=== PATIENT | female | born 1980 | race African-American/Black ===

== ENCOUNTER 2019-04-28 10:52 | Emergency (ER) | payer OTHER, SELFPAY ==
--- NOTE | ~2019-04-28 | XR_ITS ---
EXAMINATION: XR wrist LT min 3V DATE: 04/28/2019 11:49 INDICATION: Left wrist pain. TECHNIQUE: 4 views of left wrist were obtained. COMPARISON: None. FINDINGS: Bone alignment is normal. No fracture. Joint spaces are well maintained. IMPRESSION: 1. Normal left wrist. Reviewed, dictated and finalized at location A. CTOR EXTERNAL COMMUNICATIONS IMPRESSION: 1. Normal left wrist.
--- NOTE | ~2019-04-28 | XR_ITS ---
EXAMINATION: XR ankle RT 2V EXAM DATE: 04/28/2019 11:47 INDICATION: No known recent injury provided at this time. Pain of the right ankle. Sickle cell. TECHNIQUE: Right ankle frontal and lateral projections. Comparison is made to prior examination from 09/21/2009. FINDINGS: Patient had previous fibular plate, supporting tibia and fibular screws which have been re moved. Screw tracks again noted, with interval healing. 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 There are no acute fractures or dislocations identified. There is no subcutaneous gas. T he soft tissue is unremarkable. There are no radiopaque foreign bodies. There are no bony erosions identified. IMPRESSION: 1. XR ankle RT 2V exam without acute osseous findings. 2. Mild left ankle osteoarthritis. 3. Sequela from prior fracture, removed hardware. Reviewed, dictated and finalized at location B. OR PATROL AGENT
[2019-04-28 11:16] VITALS: BP 148/100; PULSE 88; RESP 16; TEMP 37.3; O2SAT 99
--- NOTE | 2019-04-28 11:22 | ED.GENADULT ---
HPI - General Adult General Chief complaint: Extremity Problem,Nontraumatic Stated complaint: arm and ankle pain Time Seen by Provider: 04/28/19 11:24 Source: patient and RN notes reviewed Mode of arrival: ambulatory Limitations: no limitations History of Present Illness HPI narrative: Yesterday on 04/27/2019, this patient started having pain in the left wrist and to a lesser extent the right wrist and in the small joints of the fingers without any visible swelling or warmth to touch or erythema. She has some mild discomfort at her left elbow as well. She has not had a trauma to these areas. She says she has a history of sickle cell trait and has had sickle cell crisis many years ago, but not recently. She is already scheduled a an appointment with her primary care physician for 3:00 today and has a hematology appointment in May 2019 to see a hvac r tech. She is had onset of right ankle discomfort without any swelling, no erythema, no warmth to touch that began this morning. She has had previous right ankle fracture which required screw placement. The screws have been removed. She has placed an Kian wrap on her ankle today since it is uncomfortable to walk. It hurts generally about the ankle, not any particular place. She has had no numbness or tingling sensation in her hands or feet. She has no toe pain and no pain in the left ankle or left toes. She has not had any knee or back pain. She has had not had any hip pain or any neck pain. She is otherwise felt well without any ear pain, no nasal drainage, no sore throat, no fever, no cough. She has had no nausea, no vomiting, no diarrhea. She has not been short of breath. She has had no palpitations. She has had no hematuria, no dysuria, no pyuria. She has had no rashes. Related Data Home Medications Medication Instructions Recorded Confirmed amlodipine 10 mg PO DAILY 04/28/19 04/28/19 hydrochlorothiazide 25 mg PO DAILY 04/28/19 04/28/19 Allergies Allergy/AdvReac Type Severity Reaction Status Date / Time No Known Allergies Allergy Verified 06/28/16 08:47 Review of Systems Review of Systems: Narrative: CONSTITUTIONAL: Denies fever, chills, or sweats. Noncontributory except as pertains to the past medical history and the history of present illness. EYES: Denies visual changes, redness, or discharge. ENT: Denies rhinorrhea, congestion, sore throat, or otalgia. CARDIOVASCULAR: Denies chest pain, palpitations, or edema. RESPIRATORY: Denies cough or dyspnea. GASTROINTESTINAL: Denies abdominal pain, nausea, vomiting, or diarrhea. GENITOURINARY: Denies dysuria or hematuria. SKIN: Denies rash or itching. MUSCULOSKELETAL: Denies back pain, joint pain, or myalgia. NEUROLOGIC: Denies headache, numbness, or weakness. PSYCHIATRIC: Denies anxiety or depression. PMFSH Comments At time of signature, I have reviewed and agree with nursing past medical, surgical, social, and family history.Please see nursing chart for further information. There is no relevant family history pertinent to the presenting complaint. Exam Narrative: Exam Narrative: GENERAL: Well-appearing, well-nourished, and in no acute distress. HEAD: Normocephalic, atraumatic. EYES: PERRLA and EOMI. EARS: TM's clear bilaterally and the canals are clear. NOSE: Nares clear, no rhinorrhea or epistaxis. THROAT:Mucous membranes moist.Oropharynx normal without erythema exudates. NECK: Supple. No adenopathy of the neck, supraclavicular, axillary, or inguinal areas. RESPIRATORY: No respiratory distress. Airway patent. Respirations non-labored. Clear to auscultation. There are no wheezes, no rales, no retractions, no use of accessory muscle respirations. Patient not cyanotic and not dyspneic. Pulse ox on room air is 99% current temperature is 99.2. HEART: Regular rate and rhythm. No murmur heard. Normal peripheral pulses. ABDOMEN: Soft, nontender, nondistended, normal active bowel sounds.No masses. No rebound or guarding, No
== END 2019-04-28 12:03 | disposition home or self-care (01) ==
PROVIDERS: Emergency Provider Family Medicine; PCP Registered Nurse
DX: M25.571 Pain in right ankle and joints of right foot (principal); M25.532 Pain in left wrist; M25.531 Pain in right wrist; I10 Essential (primary) hypertension; D57.1 Sickle-cell disease without crisis
CPT/HCPCS: 73110; 73600; 99214; G0463

== ENCOUNTER 2019-07-24 12:09 | Outpatient (CLI) | payer OTHER, SELFPAY ==
[2019-07-24 12:19] LABS: Mean Corpuscular HGB Conc 33.3 g/dl (32-36); Mean Corpuscular Hemoglobin 24.9 pg (26-34); Mean Corpuscular Volume 74.7 fl (80-100); Mean Platelet Volume 9.4 fl (7.4-10.4); Platelet Count Result 346 k/mm3 (150-375); Red Blood Count 4.82 M/mm3 (4.2-5.4); White Blood Count 10.7 K/mm3 (4.5-10.0)
[2019-07-24 13:54] LABS: Iron 69 ug/dL (37-170)
[2019-07-24 13:59] LABS: Blood Urea Nitrogen 6 mg/dL (7-17); Carbon Dioxide 29 mmol/L (22-30); Chloride 100 mmol/L (98-107); Estimated Glomerular Filt Rate > 60; Glucose 100 mg/dL (65-105); Potassium 3.3 mmol/L (3.4-5.0); Sodium 137 mmol/L (137-145)
[2019-07-24 14:03] LABS: Percent Iron Saturation 24 % (20-50)
== END 2019-07-24 12:10 | disposition home or self-care (01) ==
LOC: ANHLAB 12:09
PROVIDERS: PCP Registered Nurse; Visit Provider Internal Medicine Hematology & Oncology
DX: D50.0 Iron deficiency anemia secondary to blood loss (chronic) (principal)
CPT/HCPCS: 36415; 80048; 82728; 83540; 83550; 85027

== ENCOUNTER 2020-04-27 08:53 | Emergency (ER) | payer OTHER, SELFPAY ==
[2020-04-27] VITALS (18 sets, daily range): BP systolic 131–155; BP diastolic 70–101; PULSE 69–96; RESP 12–20; TEMP 36.9; O2SAT 90–100
--- NOTE | ~2020-04-27 | XR_ITS ---
EXAMINATION: XR chest 2V DATE: 04/27/2020 09:48 INDICATION: Left chest and arm pain TECHNIQUE: PA and lateral views of the chest were obtained. COMPARISON: Chest radiograph dated 04/12/2016 FINDINGS: The lungs remain clear with no focal airspace opacities, pulmonary edema, pleural effusion or pneumot horax. The cardiomediastinal silhouette is normal. Cholecystectomy clips in the right upper quadrant. Minimal thoracic spondylosis. IMPRESSION: 1. No acute cardiopulmonary disease. Reviewed, dictated and finalized at location B. R [employer]
--- NOTE | 2020-04-27 08:55 | ECG_ITS ---
Measurements Intervals Boley Rate: 76 P: 26 TN: 165 QRS: 38 QRSD: 93 T: 28 QT: 396 QTc: 448 Interpretive Statements SINUS RHYTHM DELAYED PRECORDIAL R/S TRANSITION BASELINE ARTIFACT- I, II, III, AVL, V1-V2 BORDERLINE ECG Electronically Signed On 04-27-2020 9:28:01 [employer] SAL[employer] by Vipul Mann D.O.
--- NOTE | 2020-04-27 09:19 | ED.CHESTPAIN ---
HPI - Chest Pain General Chief Complaint: Chest Pain Stated Complaint: lt jaw, lt chest and lt arm pain Time Seen by Provider: 04/27/20 09:13 Source: patient Mode of arrival: ambulatory Limitations: no limitations History of Present Illness HPI narrative: This is a 39-year-old female that presents the emergency department for squeezing chest pain x1 week. Reports the pain lasts for a couple of minutes and is resolved on its own. It is not exertional in nature. It happens intermittently throughout the day. The pain is associated with tingling in her left arm. Also reports the pain radiates into her neck at times. Reports she does not currently have any pain. Denies fever, cough, shortness of breath, lower extremity edema, or numbness. Related Data Home Medications Medication Instructions Recorded Confirmed amlodipine 10 mg PO DAILY 04/28/19 06/16/19 hydrochlorothiazide 25 mg PO DAILY 04/28/19 06/16/19 multivit with min-folic acid mg PO 06/16/19 [Adult One Daily Multivitamin] Allergies Allergy/AdvReac Type Severity Reaction Status Date / Time No Known Allergies Allergy Verified 06/28/16 08:47 Review of Systems Review of Systems: Narrative: CONSTITUTIONAL: Denies fever CARDIOVASCULAR: Reports chest pain. Denies palpitations, or edema. RESPIRATORY: Denies cough or dyspnea. SKIN: Denies rash MUSCULOSKELETAL: Reports joint pain, or myalgia. NEUROLOGIC: Denies numbness, or weakness. All systems reviewed & are unremarkable except as noted in HPI and below PMFSH Past Medical History Medical History (Updated 04/27/20 @ 12:52 by Kristina Abreu PA-C) History of hypertension Social History Social History Smoking status: Never smoker Gender identity (if verbalized by the patient): Female Spiritual care concerns: Yes (Uatsdin) Exam Narrative: Exam Narrative: GENERAL: Well-appearing, obese, and in no acute distress. HEAD: Normocephalic, atraumatic. EYES: EOMI. ENT: Mucous membranes moist. Oropharynx without tonsillar hypertrophy exudate or other lesions. NECK: Supple. No adenopathy or masses. No carotid bruits or JVD CHEST: Clear to auscultation. No respiratory distress. No wheezes rales or rhonchi HEART: Regular rate and rhythm. No murmur heard. Normal peripheral pulses. EXTREMITIES: Normal range of motion. No edema. SKIN: Warm, dry, no rash. NEURO: No focal deficits. Alert and oriented x3. PSYCH: Normal mood and affect Course Vital Signs Vital signs: Vital Signs Pulse Rate 76 04/27/20 09:18 Respiratory Rate 18 04/27/20 09:18 Pulse Oximetry 100 04/27/20 09:18 Temperature 98.4 F 04/27/20 09:27 Pulse Rate 91 04/27/20 12:00 Respiratory Rate 20 04/27/20 12:00 Blood Pressure 155/98 H 04/27/20 12:00 Pulse Oximetry 100 04/27/20 12:00 MDM - Chest Pain MDM Narrative Medical decision making narrative: Patient presents to the emergency department for intermittent chest pains over the last week. They are nonexertional in nature. Reports the pain lasts briefly and is alleviated without intervention. Blood pressure is mildly elevated in the ED, otherwise vitals are normal. CBC with mild leukocytosis to 10.9. Metabolic panel with mild hypokalemia with potassium of 2.9. Patient given dose of potassium in the ED. EKG is without concerning changes. Baseline and 3-hour troponin is negative. Chest x-ray is without acute findings. Heart score is 2. Reports no current chest pain while in the ED. She is stable and felt appropriate for further outpatient evaluation. She was instructed to follow-up with her primary care doctor. She was given warnings to return to the ER Lab Data Attestation: I reviewed the patient's lab results. Result diagrams: 04/27/20 09:14 04/27/20 09:14 Labs: Lab Results 04/27/20 04/27/20 04/27/20 Range/Units 09:14 09:14 09:14 WBC 10.9 H (4.5-10.0) K/mm3 RBC 4.51 (4.2-5.4) M/mm3 Hgb 12.0 (12.0-15
[2020-04-27 09:22] LABS: Basophils Absolute Auto 0.1 K/mm3 (0.0-0.1); Basophils Percent Auto 0.5 % (0.2-1.2); Eosinophils Absolute Auto 0.2 K/mm3 (0-0.3); Eosinophils Percent Auto 1.8 % (0-4.4); Hematocrit 35.7 % (37.0-47.0); Immature Granulocyte Absolute 0.03 K/mm3 (0.00-0.031); Immature Granulocyte Percent A 0.3 % (0-0.5); Lymphocytes Absolute Auto 2.29 K/mm3 (0.9-3.2); Lymphocytes Percent Auto 21.1 % (18.3-44.2); Mean Corpuscular HGB Conc 33.6 g/dl (32-36); Mean Corpuscular Hemoglobin 26.6 pg (26-34); Mean Corpuscular Volume 79.2 fl (80-100); Mean Platelet Volume 9.5 fl (7.4-10.4); Monocytes Absolute Auto 0.6 K/mm3 (0.1-0.6); Monocytes Percent Auto 5.3 % (2.6-8.5); Neutrophils Absolute Auto 7.7 K/mm3 (1.3-6.7); Platelet Count Result 343 k/mm3 (150-375); Red Blood Count 4.51 M/mm3 (4.2-5.4); Red Cell Distribution Width 12.9 % (11.5-14.5); White Blood Count 10.9 K/mm3 (4.5-10.0)
[2020-04-27] MEDS: ASPIRIN 81 MG CHEWABLE TABLET 324 MG PO (09:26)
[2020-04-27 09:36] LABS: Anion Gap 5 mmol/L (8-16); Blood Urea Nitrogen 11 mg/dL (7-17); Calcium 9.1 mg/dL (8.4-10.2); Carbon Dioxide 35 mmol/L (22-30); Chloride 98 mmol/L (98-107); Estimated CRCL calculation 98 ml/min; Estimated Glomerular Filt Rate > 60; Glucose 101 mg/dL (65-105); Potassium 2.9 mmol/L (3.4-5.0); Sodium 138 mmol/L (137-145)
[2020-04-27 09:48] LABS: Troponin I < 0.012 ng/mL (0.000-0.034)
[2020-04-27] MEDS: POTASSIUM CHLORIDE 20 MEQ TABLET 40 MEQ PO (10:07)
[2020-04-27 12:38] LABS: Troponin I < 0.012 ng/mL (0.000-0.034)
== END 2020-04-27 13:08 | disposition home or self-care (01) ==
PROVIDERS: Emergency Provider Emergency Medicine; PCP Registered Nurse
DX: R07.89 Other chest pain (principal); I10 Essential (primary) hypertension
CPT/HCPCS: 36415; 71046; 80048; 84484; 85025; 85610; 85730; 93005; 99284; A9270

== ENCOUNTER 2020-06-30 08:19 | Emergency (ER) | payer OTHER, SELFPAY ==
[2020-06-30 08:38] VITALS: BP 145/99; PULSE 80; RESP 16; TEMP 36.8; O2SAT 97
--- NOTE | 2020-06-30 08:54 | ED.URI ---
HPI - URI/Sore Throat General Chief Complaint: Upper Respiratory Infection Stated Complaint: sore throat Time Seen by Provider: 06/30/20 08:56 Source: patient and RN notes reviewed Mode of arrival: ambulatory Limitations: no limitations History of Present Illness HPI Narrative: 39-year-old female presents with concern for sore throat that started this morning. Reports her throat was raw and somewhat swollen, making her unable to swallow her blood pressure medication. She reports since then the sore throat has mildly improved without intervention. She reports postnasal drainage. She reports 3 episodes of diarrhea this morning. She denies fever, body aches, chills, sweats, cough, shortness of breath, nasal congestion, ear pain, vomiting, diarrhea. She denies any known sick contacts. Reports she was positive for Covid in January, was asymptomatic at that time. MD elicited complaint: sore throat Related Data Home Medications Medication Instructions Recorded Confirmed amlodipine [Norvasc] 10 mg PO DAILY 06/30/20 06/30/20 hydrochlorothiazide [HydroDiuril] 25 mg PO DAILY 06/30/20 06/30/20 Allergies Allergy/AdvReac Type Severity Reaction Status Date / Time No Known Allergies Allergy Verified 06/30/20 08:43 Review of Systems Review of Systems: Narrative: CONSTITUTIONAL: Denies malaise, chills, sweats, or fever. EYES: Denies visual changes, redness, or discharge. ENT: Reports rhinorrhea, sore throat. Denies congestion, sinus pain, otalgia CARDIOVASCULAR: Denies chest pain, palpitations, or edema. RESPIRATORY: Denies cough dyspnea. GASTROINTESTINAL: Denies abdominal pain, nausea, vomiting. Reports diarrhea SKIN: Denies rash or itching. MUSCULOSKELETAL: Denies myalgia. NEUROLOGIC: Denies headache. All systems reviewed & are unremarkable except as noted in HPI and below PMFSH Past Medical History Medical History (Updated 06/30/20 @ 09:05 by Sanam Rooney NP) History of hypertension Social History Social History Smoking status: Never smoker Gender identity (if verbalized by the patient): Female Spiritual care concerns: Yes (L[employer] Day) Comments At time of signature, agree with nursing past medical, surgical, social and family history. There is no relevant family history pertinent to the presenting complaint Exam Narrative: Exam Narrative: GENERAL: Well-appearing, well-nourished, and in no acute distress. HEAD: Normocephalic EYES: PERRLA, conjunctivae clear ENT: Nares clear, turbinates edematous and erythematous, clear discharge. Mucous membranes moist. TM pearly chaudhry with dull light reflex bilaterally; no tragal tenderness. Oropharynx erythematous without lesions. Tonsils enlarged and without exudate, no drooling, no hoarseness, no trismus, uvula midline. NECK: Supple. No lymphadenopathy CHEST: Clear to auscultation, breath sounds equal. No wheezing, rhonchi, rales, or stridor. No respiratory distress, speaks in full sentences. HEART: Regular rate and rhythm. No murmur heard. SKIN: Warm, dry, no rash. NEURO: Alert and oriented x3. PSYCH: Normal mood and affect Course Course Emergency Course: Patient is aware of diagnosis, understands and agrees to treatment plan. Anticipatory guidance given. Patient agrees to follow-up as directed and is aware of reasons to seek care at the emergency department. Portions of this record may have been created with voice recognition software Vital Signs Vital signs: Vital Signs Temperature 98.2 F 06/30/20 08:38 Pulse Rate 80 06/30/20 08:38 Respiratory Rate 16 06/30/20 08:38 Blood Pressure 145/99 H 06/30/20 08:38 Pulse Oximetry 97 06/30/20 08:38 Temperature 98.2 F 06/30/20 08:38 Pulse Rate 80 06/30/20 08:38 Respiratory Rate 16 06/30/20 08:38 Blood Pressure 145/99 H 06/30/20 08:38 Pulse Oximetry 97 06/30/20 08:38 Reviewed. MDM - URI/Sore Throat MDM Narrative Medical decision making narrative: Differential diagnosis considered: Cor
[2020-07-01 19:22] LABS: SARS-CoV-2 RNA PCR Negative
== END 2020-06-30 09:10 | disposition home or self-care (01) ==
PROVIDERS: Emergency Provider Nurse Practitioner; PCP Registered Nurse
DX: J06.9 Acute upper respiratory infection, unspecified (principal); Z20.822 Contact with and (suspected) exposure to COVID-19; I10 Essential (primary) hypertension
CPT/HCPCS: 87081; 87880; 99213; C9803; G0463; U0003; U0005

== ENCOUNTER 2020-08-22 15:43 | Emergency (ER) | payer OTHER, SELFPAY ==
[2020-08-22 15:52] VITALS: BP 140/107; PULSE 94; RESP 17; TEMP 37.1; O2SAT 99
--- NOTE | 2020-08-22 15:53 | ED.DENTAL ---
HPI - Dental/Oral General Chief complaint: Dental/Oral Stated complaint: Tooth Pain Source: patient and RN notes reviewed Mode of arrival: ambulatory Limitations: no limitations History of Present Illness HPI Narrative: 39-year-old female presents to the [facility] with complaints of dental pain, swelling to the right lower jaw. Has had dental issues for a while. Wanted to wait until summer so school was out. Does not currently have an appointment with a dental provider. No treatment prior to arrival. Last 2 days pain is gotten worse. Denies fevers. No trouble breathing. Teeth map: 1. decayed teeth Related Data Home Medications Medication Instructions Recorded Confirmed amlodipine [Norvasc] 10 mg PO DAILY 06/30/20 06/30/20 hydrochlorothiazide [HydroDiuril] 25 mg PO DAILY 06/30/20 06/30/20 Allergies Allergy/AdvReac Type Severity Reaction Status Date / Time No Known Allergies Allergy Verified 06/30/20 08:43 Review of Systems Constitutional: Constitutional: Reports no additional constitutional complaints, Denies chills and Denies fever(s) Eyes: Eyes: Reports no additional eye complaints ENT: Comments: Right lower dental pain and swelling Cardiovascular: Cardiovascular: Reports no additional cardiovascular complaints and Denies chest pain Respiratory: Respiratory: Reports no additional respiratory complaints, Denies cough, Denies dyspnea and Denies wheezing Gastrointestinal: Gastrointestinal: Reports no additional gastrointestinal complaints Musculoskeletal: Musculoskeletal: Reports no additional musculoskeletal complaints Integumentary/Breasts: Skin/Breast: Reports system reviewed and no additional complaints, except as docu Neurologic: Reports system reviewed and no additional complaints, except as documented Psychiatric: Psychiatric: Reports no additional psychiatric complaints [facility] Past Medical History Medical History (Updated 08/22/20 @ 15:59 by Sanam Varghese) History of hypertension Social History Social History Smoking status: Never smoker Gender identity (if verbalized by the patient): Female Spiritual care concerns: Yes (Pent[employer]ostal) Comments At the time of my signature, I reviewed and agree with the nursing past medical, surgical, social, and family history. There is no relevant family history pertinent to the patient complaint. Exam Const: General: healthy appearing, no acute distress and alert Nutritional Appearance: well nourished and obese morbidly obese Orientation/consciousness: patient oriented x3 Limitations: no limitations HENMT: Head: normal to inspection Ears: external ears normal and TM's normal bilaterally Teeth and gingiva: abnormal tooth and associated gingiva (Generalized poor dentition, posterior right lower molar decayed below gum) Throat: posterior oropharynx normal and uvula midline Eyes: Pupils: Equal, round and reactive pupils present Neck: Neck: normal visual inspection and no lymphadenopathy Chest: Chest palpation & inspection: normal inspection of the chest Resp: Effort & Inspection: normal respiratory effort and no use of accessory muscles Auscultation: clear to auscultation bilaterally, no crackles, no rales, no rhonchi and no wheezes Cardio: Rate: regular rate Rhythm: regular rhythm : General: Yes no CVA tenderness Skin: General skin exam: normal color Rashes: no rashes Neuro: General: patient oriented x3, moves all extremities, no meningeal signs and no focal motor deficits Speech: normal speech Gait exam (Neuro): Normal gait present Extrem: General: normal to inspection Psych: Appearance: grossly normal Mental Status: mental status grossly normal Affect: normal affect Attitude: cooperative Thought content: Yes Normal thought content present Course Vital Signs Vital signs: Vital Signs Temperature 98.8 F 08/22/20 15:52 Pulse Rate 94 08/22/20 15:52 Respiratory Rat
== END 2020-08-22 16:03 | disposition home or self-care (01) ==
PROVIDERS: Emergency Provider Nurse Practitioner; PCP Registered Nurse
DX: K04.7 Periapical abscess without sinus (principal); K02.9 Dental caries, unspecified; I10 Essential (primary) hypertension
CPT/HCPCS: 99213; G0463

== ENCOUNTER 2020-12-26 08:15 | Emergency (ER) | payer OTHER, SELFPAY ==
[2020-12-26 08:26] VITALS: BP 143/96; PULSE 77; RESP 18; TEMP 37; O2SAT 100
--- NOTE | 2020-12-26 08:40 | ED.URI ---
HPI - URI/Sore Throat General Chief Complaint: Upper Respiratory Infection Stated Complaint: Sore Throat Source: patient and RN notes reviewed Limitations: no limitations History of Present Illness HPI Narrative: The vaccinated, overweight patient, who was previously healthy school worker, presents with sore throat. Patient notes she has a couple day history of sore throat and scant nasal congestion; no fever, cough, loss of taste/smell, CP, vomiting/diarrhea, S OB. Symptoms are mild, worse with swallowing; [id number] testing is positive for strep Related Data Home Medications Medication Instructions Recorded Confirmed amlodipine [Norvasc] 10 mg PO DAILY 06/30/20 06/30/20 hydrochlorothiazide [HydroDiuril] 25 mg PO DAILY 06/30/20 06/30/20 Allergies Allergy/AdvReac Type Severity Reaction Status Date / Time No Known Allergies Allergy Verified 06/30/20 08:43 Review of Systems Review of Systems: General/Constitutional: No weight loss,fever Eyes: N0: Redness,discharge Ears/Nose/Throat: No: Epistaxis,ear discharge Respiratory: Denies: Hemoptysis Gastrointestinal: No Vomiting, Bleeding-rectal Skin: No Lumps, eruption Neurologic: No Focal Weakness,Sz Hematologic: Denies: Petechiae/Purpura Psychiatric: No: Suicida ideationl All Other Systems: Reviewed and Negative PMFSH Past Medical History Medical History (Updated 12/26/20 @ 08:41 by Wilfrido Dubon MD) History of hypertension Social History Social History Smoking status: Never smoker Gender identity (if verbalized by the patient): Female Spiritual care concerns: Yes (Yarsanism) Comments At time of signature, agree with nursing past medical, surgical, social and family history. There is no relevant family history pertinent to the presenting complaint Exam Narrative: General Appearance: Well appearing, Well nourished EYE: PERRLA, Conjunctiva clear Ears: Auditory canal normal, TM normal Nose: Rhinorrhea, Mucousal erythema Mouth/Throat: MM moist, Uvula midline, Pharyngeal erythema, uvular edema without exudate Neck: Supple, No adenopathy Respiratory: No respiratory distress, Breath sounds equal, Clear to auscultation Cardiovascular: RRR, No JVD Musculoskeletal: Non tender, Normal strength Skin: Warm, Dry Neurological: A&O x3, CN II-XII intact Psychiatric: Normal mood, Normal affect Course Vital Signs Vital signs: Vital Signs Temperature 98.6 F 12/26/20 08:26 Pulse Rate 77 12/26/20 08:26 Respiratory Rate 18 12/26/20 08:26 Blood Pressure 143/96 H 12/26/20 08:26 Pulse Oximetry 100 12/26/20 08:26 Temperature 98.6 F 12/26/20 08:26 Pulse Rate 77 12/26/20 08:26 Respiratory Rate 18 12/26/20 08:26 Blood Pressure 143/96 H 12/26/20 08:26 Pulse Oximetry 100 12/26/20 08:26 MDM - URI/Sore Throat Lab Data Labs: Strep Screen Positive Group A Strep *(Reference Range: Negative)* Discharge Plan Discharge Clinical Impression: Acute streptococcal pharyngitis Patient Disposition: Home, Self-Care Condition: Stable Instructions: Strep Throat (ED) Prescriptions: New amoxicillin 875 mg tablet 875 mg PO Q12H Qty: 20 RF: 0 lidocaine HCl [Lidocaine Viscous] 2 % solution 5 ml MUCOUS MEM QID PRN (Reason: pain) Qty: 100 RF: 0 Discontinued amoxicillin 875 mg tablet 875 mg PO Q12H Qty: 20 RF: 0 lidocaine HCl [Lidocaine Viscous] 2 % solution 5 ml MUCOUS MEM QID PRN (Reason: pain) Qty: 100 RF: 0 No Action amlodipine [Norvasc] 10 mg Tablet 10 mg PO DAILY RF: 0 hydrochlorothiazide [HydroDiuril] 25 mg Tablet 25 mg PO DAILY RF: 0 fluticasone propionate [Flonase Allergy Relief] 50 mcg/actuation spray,suspension 2 spray NASAL DAILY 14 Days Qty: 15.8 RF: 0 Coricidin HBP Cold and Flu 2-325 mg tablet 1 tablet PO Q4-6H PRN (Reason: cold symptoms) Qty:
== END 2020-12-26 08:50 | disposition home or self-care (01) ==
PROVIDERS: Emergency Provider Emergency Medicine; PCP Registered Nurse
DX: J02.0 Streptococcal pharyngitis (principal); Z20.822 Contact with and (suspected) exposure to COVID-19
CPT/HCPCS: 87426; 87880; 99213; C9803; G0463

== ENCOUNTER 2021-11-13 17:58 | Emergency (ER) | payer OTHER, SELFPAY ==
--- NOTE | ~2021-11-13 | XR_ITS ---
EXAMINATION: XR ankle RT min 3V DATE: 11/13/2021 19:01 INDICATION: Right ankle pain. TECHNIQUE: 4 views of right ankle were obtained. COMPARISON: Right ankle radiographs 04/28/2019 FINDINGS: Bone alignment is normal. No acute fracture. There are old fracture deformities of distal f ibula and medial malleolus with tracks from hardware that has been removed. There is an osteochondral lesion of lateral talar dome. There are enthesophytes at the posterior and plantar aspects of calcan eal tuberosity. There is ankle soft tissue swelling. IMPRESSION: 1. Osteochondral lesion of lateral talar dome. Reviewed, dictated and finalized at location A.
[2021-11-13 18:06] VITALS: BP 150/92; PULSE 76; RESP 16; TEMP 36.8; O2SAT 100
--- NOTE | 2021-11-13 18:35 | ED.GENADULT ---
HPI - General Adult General Chief complaint: Extremity Problem,Nontraumatic Stated complaint: Right Ankle Pain Time Seen by Provider: 11/13/21 18:35 Source: patient Mode of arrival: ambulatory Limitations: no limitations History of Present Illness HPI narrative: 41-year-old female with complaint of pain that started 2 to 3 days ago. Denies injury. Reports history of fracture to this ankle approximately 13 years ago. Reports pain when ambulatory. States that she is having mild swelling. States that she is limping when she is walking. Decreased range of motion due to pain. All systems reviewed and negative. Related Data Home Medications Medication Instructions Recorded Confirmed amlodipine 10 mg tablet (Norvasc) 10 mg PO DAILY 06/30/20 11/13/21 omeprazole 40 mg capsule,delayed 40 mg PO DAILY 09/18/21 11/13/21 release Allergies Allergy/AdvReac Type Severity Reaction Status Date / Time No Known Allergies Allergy Verified 11/13/21 18:12 Review of Systems Review of Systems: CONSTITUTIONAL: Denies fever, chills, or sweats. EYES: Denies visual changes, redness, or discharge. ENT: Denies rhinorrhea, congestion, sore throat, or otalgia. CARDIOVASCULAR: Denies chest pain, palpitations, or edema. RESPIRATORY: Denies cough or dyspnea. GASTROINTESTINAL: Denies abdominal pain, nausea, vomiting, or diarrhea. GENITOURINARY: Denies dysuria or hematuria. SKIN: Denies rash or itching. MUSCULOSKELETAL: Reports right ankle pain and swelling. NEUROLOGIC: Denies headache, numbness, or weakness. PSYCHIATRIC: Denies anxiety or depression. All other systems reviewed are negative, except as documented in HPI. PMFSH Past Medical History Medical History (Updated 11/13/21 @ 19:32 by Anila Vazquez NP) History of hypertension Social History Social History Smoking status: Never smoker Gender identity (if verbalized by the patient): Female Spiritual care concerns: Yes (Yazidism) Comments At time of signature, agree with nursing past medical, surgical, social and family history. There is no relevant family history pertinent to the presenting complaint. Exam Narrative: GENERAL: This is a well-nourished, well-developed patient, in no apparent distress. HEAD: normocephalic, atraumatic. EYES: PERRL. Sclera clear/white. Vision is grossly intact. EARS: External ears normal NOSE: External nose normal NECK: Neck supple, non-tender without lymphadenopathy, masses or thyromegaly. CARDIOVASCULAR: Regular rate and rhythm without murmurs, gallops, or rubs. RESPIRATORY: Clear to auscultation. Breath sounds equal bilaterally. No wheezes, rales, or rhonchi. SKIN: warm, Dry, intact with no suspicious lesions or rash, good texture and turgor. NEURO: awake, alert, and oriented to person, place and time. There were no obvious focal neurologic abnormalities. EXTREMITIES: There is mild swelling to right ankle with tenderness to anterior aspect. Decreased range of motion. Distal neurovascularly intact. BACK: Nontender without deformity. Course Course Level of Care: Express Care Visit Vital Signs Vital signs: Vital Signs Temperature 36.8 C 11/13/21 18:06 Pulse Rate 76 11/13/21 18:06 Respiratory Rate 16 11/13/21 18:06 Blood Pressure 150/92 H 11/13/21 18:06 Pulse Oximetry 100 11/13/21 18:06 Oxygen Delivery Room Air 11/13/21 18:06 Temperature 36.8 C 11/13/21 18:06 Pulse Rate 76 11/13/21 18:06 Respiratory Rate 16 11/13/21 18:06 Blood Pressure 150/92 H 11/13/21 18:06 Pulse Oximetry 100 11/13/21 18:06 Oxygen Delivery Room Air 11/13/21 18:06 Reviewed Medical Decision Making MDM Narrative Medical decision making narrative: Discussed x-ray results with patient. Will place an OCL splint due to pain, possible cartilage fracture. Refer to orthopedics for further evaluation. Patient is aware of diagnosis, understands and agrees to
== END 2021-11-13 20:00 | disposition home or self-care (01) ==
PROVIDERS: Emergency Provider Nurse Practitioner Family; PCP Registered Nurse
DX: M25.572 Pain in left ankle and joints of left foot (principal); M89.9 Disorder of bone, unspecified
CPT/HCPCS: 29515; 73610; 99213; G0463

== ENCOUNTER 2022-05-24 08:10 | Emergency (ER) | payer OTHER, SELFPAY ==
--- NOTE | 2022-05-24 08:11 | ED.URI ---
HPI - URI/Sore Throat General Chief Complaint: Upper Respiratory Infection Stated Complaint: Sinus Time Seen by Provider: 05/24/22 08:23 Source: patient, RN notes reviewed and old records reviewed Mode of arrival: ambulatory Limitations: no limitations History of Present Illness HPI Narrative: 41-year-old female presents to the [facility] with sinus congestion, body ache, ear pain and sore throat since Saturday, 2 days ago. Has taken Zicam and TheraFlu with no relief Patient has a history of high blood pressure, did not take her medication today. Onset (ago): day(s) (2) Related Data Home Medications Medication Instructions Recorded Confirmed amlodipine 10 mg tablet 10 mg PO DAILY 05/24/22 05/24/22 omeprazole 20 mg capsule,delayed 20 mg PO DAILY 05/24/22 05/24/22 release Allergies Allergy/AdvReac Type Severity Reaction Status Date / Time No Known Allergies Allergy Verified 05/24/22 08:22 Review of Systems Review of Systems: All systems reviewed & are unremarkable except as noted in HPI and below Constitutional: Constitutional: Reports as per HPI and Reports body ache(s) Eyes: Eyes: Reports no additional eye complaints ENT: Reports as per HPI, Reports nasal congestion and Reports sore throat Cardiovascular: Cardiovascular: Reports no additional cardiovascular complaints, Denies chest pain and Denies dyspnea Respiratory: Respiratory: Reports no additional respiratory complaints, Denies chest congestion, Denies cough and Denies dyspnea Gastrointestinal: Gastrointestinal: Reports no additional gastrointestinal complaints, Denies abdominal pain, Denies nausea and Denies vomiting Musculoskeletal: Musculoskeletal: Reports no additional musculoskeletal complaints Integumentary/Breasts: Skin/Breast: Reports system reviewed and no additional complaints, except as docu Neurologic: Reports system reviewed and no additional complaints, except as documented Psychiatric: Psychiatric: Reports no additional psychiatric complaints Allergic/Immunologic: Allergic/Immunologic: Reports no additional allergic/immunologic complaints [facility] Past Medical History Medical History History of hypertension Hypertension Surgical History Surgical History H/O gastric sleeve Family History Family History Father Alcoholism Diabetes mellitus Grandparent Cancer Heart disease Other Cancer Mother Hypertension Social History Social History Smoking status: Never smoker Alcohol intake: never Substance use: never Living arrangements: with family Additional occupation/education comments: [employer] Gender identity (if verbalized by the patient): Female Spiritual care concerns: Yes (Congregational) Comments At the time of my signature, I reviewed and agree with the nursing past medical, surgical, social, and family history. There is no relevant family history pertinent to the patient complaint. Exam Const: General: cooperative, healthy appearing, comfortable, no acute distress, well developed, alert and well nourished Nutritional Appearance: well nourished and obese Orientation/consciousness: patient oriented x3 Limitations: no limitations HENMT: Head: normal to inspection Ears: hearing grossly normal bilaterally and external ears normal Face/Nose/Sinus: Normal external nose present, Normal nares present, Normal nasal mucous membranes and turbinates present, Nasal discharge present clear bilateral and normal facial exam Face and sinus: normal facial exam Mouth: Yes Normal oral and palatal mucosa present, Yes lip normal and Yes moist mucous membranes Throat: posterior oropharynx normal and uvula midline Eyes: General: appearance normal, both eyes and all related structures Alignment a
[2022-05-24 08:22] VITALS: BP 153/99; PULSE 67; RESP 12; TEMP 36.9; O2SAT 100
== END 2022-05-24 09:00 | disposition home or self-care (01) ==
PROVIDERS: Emergency Provider Nurse Practitioner; PCP Registered Nurse
DX: J06.9 Acute upper respiratory infection, unspecified (principal); Z20.822 Contact with and (suspected) exposure to COVID-19
CPT/HCPCS: 87081; 87426; 87804; 87880; 99213; C9803; G0463

== ENCOUNTER 2022-10-18 16:21 | Emergency (ER) | payer OTHER, SELFPAY ==
--- NOTE | 2022-10-18 16:26 | ED.URI ---
HPI - URI/Sore Throat General Chief Complaint: Upper Respiratory Infection Stated Complaint: Covid + Time Seen by Provider: 10/18/22 16:35 Source: patient Mode of arrival: ambulatory Limitations: no limitations History of Present Illness HPI Narrative: Diane is a 41-year-old female patient presenting to the clinic today with complaints of headache, congestion, sore throat, body aches, feeling feverish, and chills all that just started last night. She is concerned that she may have COVID. She is tested 3 times at home for COVID had 1 test was positive, 1 testing confirmed, and 1 test that was negative. She denies any shortness of breath or chest pain. Denies any known exposure to anyone with COVID, flu, or strep. MD elicited complaint: sore throat and nasal congestion Related Data Home Medications Medication Instructions Recorded Confirmed amlodipine 10 mg tablet 10 mg PO DAILY 05/24/22 05/24/22 omeprazole 20 mg capsule,delayed 20 mg PO DAILY 05/24/22 05/24/22 release ergocalciferol (vitamin D2) 1,250 10/18/22 mcg (50,000 unit) capsule Allergies Allergy/AdvReac Type Severity Reaction Status Date / Time No Known Allergies Allergy Verified 10/18/22 16:35 Review of Systems Review of Systems: Pertinent positives per HPI. Patient denies any rash,visual changes, dizziness,shortness of breath, chest pain, palpitations, nausea, vomiting, diarrhea, constipation, abdominal pain, or any urinary issues. [facility] Past Medical History Medical History History of hypertension Hypertension Surgical History Surgical History H/O gastric sleeve Family History Family History Father Alcoholism Diabetes mellitus Grandparent Cancer Heart disease Other Cancer Mother Hypertension Social History Social History Smoking status: Never smoker Alcohol intake: never Substance use: never Living arrangements: with family Additional occupation/education comments: [employer] Gender identity (if verbalized by the patient): Female Spiritual care concerns: Yes (Spiritism) Comments At the time of my signature, I reviewed and agree with the nursing past medical, surgical, social, and family history. There is no relevant family history pertinent to the patient complaint. Exam Narrative: General: Well-developed, well nourished, in no apparent distress Head: Normocephalic, atraumatic Eyes: Pupils equally round and reactive to light bilaterally, EOM intact, sclera and conjunctive clear, no discharge, lids normal Ears: TMs intact and clear, ear canals clear, no drainage, grossly hearing normal. Nose: Nares patent, clear nasal discharge, no inflammation, no sinus tenderness. Mouth: Oral pharynx without lesions or masses, good dentition, MMM. Neck: Supple, trachea midline, no enlargement of anterior or posterior cervical nodes, no thyroid masses or goiter palpable. Cardio: Regular rate and rhythm, s1 and s2 normal, no murmur appreciated. Resp: Clear to auscultation bilaterally, no rhonchi, rales, wheezing or rubs Course Course Emergency Course: Portions of this record may have been created with voice recognition software. Level of Care: Express Care Visit Vital Signs Vital signs: Vital signs reviewed MDM - URI/Sore Throat MDM Narrative Medical decision making narrative: At the time of visit patient is resting comfortably on the exam table. COVID, strep, and influenza testing was performed and was negative. I suspect patient has viral syndrome, URI, pharyngitis. Supportive measures were discussed with the patient she voiced understanding discharge instructions and agrees to treatment plan. Differential Diagnosis Differential diagnosis: Likely
[2022-10-18 16:39] VITALS: BP 154/95; PULSE 81; RESP 16; TEMP 37.3; O2SAT 100
== END 2022-10-18 17:22 | disposition home or self-care (01) ==
PROVIDERS: Emergency Provider Nurse Practitioner Family; PCP Registered Nurse
DX: J06.9 Acute upper respiratory infection, unspecified (principal); J02.9 Acute pharyngitis, unspecified; B34.9 Viral infection, unspecified; Z20.822 Contact with and (suspected) exposure to COVID-19; I10 Essential (primary) hypertension
CPT/HCPCS: 87081; 87426; 87804; 87880; 99213; C9803; G0463

== ENCOUNTER 2023-04-03 13:06 | Outpatient (CLI) | payer OTHER, SELFPAY ==
[2023-04-03 13:17] LABS: Basophils Absolute Auto 0.1 K/mm3 (0.0-0.1); Basophils Percent Auto 0.9 % (0.2-1.2); Eosinophils Absolute Auto 0.3 K/mm3 (0-0.3); Eosinophils Percent Auto 4.9 % (0-4.4); Hematocrit 26.4 % (37.0-47.0); Immature Granulocyte Absolute 0.02 K/mm3 (0.00-0.031); Immature Granulocyte Percent A 0.3 % (0-0.5); Lymphocytes Absolute Auto 1.85 K/mm3 (0.9-3.2); Mean Corpuscular HGB Conc 30.3 g/dl (32-36); Mean Corpuscular Hemoglobin 19.3 pg (26-34); Mean Corpuscular Volume 63.8 fl (80-100); Mean Platelet Volume 8.1 fl (7.4-10.4); Monocytes Absolute Auto 0.6 K/mm3 (0.1-0.6); Monocytes Percent Auto 9.7 % (2.6-8.5); Neutrophils Absolute Auto 3.5 K/mm3 (1.3-6.7); Neutrophils Percent Auto 55.2 % (45.5-73.1); Platelet Count Result 228 k/mm3 (150-375); Red Blood Count 4.14 M/mm3 (4.2-5.4); Red Cell Distribution Width 29.9 % (11.5-14.5); White Blood Count 6.4 K/mm3 (4.5-10.0)
[2023-04-03 13:22] LABS: Anisocytosis 1+ (NORMAL); Microcytosis 1+ (NORMAL); Platelet Estimate Adequate (Adequate); Schistocytes None Seen (NORMAL); Target Cells 1+ (NORMAL)
[2023-04-03 13:23] LABS: Poikilocytosis 1+ (NORMAL)
[2023-04-03 15:21] LABS: Iron 28 ug/dL (37-170)
[2023-04-03 15:37] LABS: Percent Iron Saturation 7 % (20-50)
== END 2023-04-03 13:07 | disposition home or self-care (01) ==
LOC: ANHLAB 13:07
PROVIDERS: PCP Registered Nurse; Visit Provider Internal Medicine Hematology & Oncology
DX: D64.9 Anemia, unspecified (principal)
CPT/HCPCS: 36415; 82607; 82728; 82746; 83540; 83550; 85025

== ENCOUNTER 2023-05-08 18:40 | Emergency (ER) | payer OTHER, SELFPAY ==
[2023-05-08 18:50] VITALS: BP 147/100; PULSE 96; RESP 18; TEMP 37; O2SAT 100
--- NOTE | 2023-05-08 19:01 | ED.URI ---
HPI - URI/Sore Throat General Chief Complaint: Upper Respiratory Infection Stated Complaint: COVID + Time Seen by Provider: 05/08/23 19:01 Source: patient Mode of arrival: ambulatory Limitations: no limitations History of Present Illness HPI Narrative: 42-year-old female presents with complaint of sinus congestion, sore throat starting yesterday. Patient reports she had 2 positive home COVID test today. Patient needs note to be off work. Reports mild cough, no shortness of breath. All systems reviewed and negative except as noted above. Related Data Home Medications Medication Instructions Recorded Confirmed amlodipine 10 mg tablet 10 mg PO DAILY 05/24/22 05/08/23 omeprazole 20 mg capsule,delayed 20 mg PO DAILY 05/24/22 05/08/23 release ergocalciferol (vitamin D2) 1,250 1,250 mcg PO DAILY 10/18/22 05/08/23 mcg (50,000 unit) capsule Allergies Allergy/AdvReac Type Severity Reaction Status Date / Time No Known Allergies Allergy Verified 05/08/23 18:55 Review of Systems Review of Systems: CONSTITUTIONAL: Denies fever, chills, or sweats. EYES: Denies visual changes, redness, or discharge. ENT: Reports rhinorrhea, congestion, sore throat. Denies otalgia. CARDIOVASCULAR: Denies chest pain, palpitations, or edema. RESPIRATORY: reports cough. Denies dyspnea. GASTROINTESTINAL: Denies abdominal pain, nausea, vomiting, or diarrhea. GENITOURINARY: Denies dysuria or hematuria. SKIN: Denies rash or itching. MUSCULOSKELETAL: Denies back pain, joint pain, or myalgia. NEUROLOGIC: Denies headache, numbness, or weakness. PSYCHIATRIC: Denies anxiety or depression. All other systems reviewed are negative, except as documented in HPI. [facility] Past Medical History Medical History History of hypertension Hypertension Surgical History Surgical History H/O gastric sleeve Family History Family History Father Alcoholism Diabetes mellitus Grandparent Cancer Heart disease Other Cancer Mother Hypertension Social History Social History (Reviewed 10/18/22 @ 17:18 by ANN MARIE Roque Smoking status: Never smoker Alcohol intake: never Substance use: never Living arrangements: with family Additional occupation/education comments: [employer] Gender identity (if verbalized by the patient): Female Spiritual care concerns: Yes (Jewish) Comments At time of signature, agree with nursing past medical, surgical, social and family history. There is no relevant family history pertinent to the presenting complaint. Exam Narrative: GENERAL: This is a well-nourished, well-developed patient, in no apparent distress. HEAD: normocephalic, atraumatic. EYES: PERRL. Sclera clear/white. Vision is grossly intact. EARS: External ears normal, auditory canals clear and without drainage, TMs normal without perforation. Hearing grossly intact. NOSE: External nose normal with clear nasal drainage with mild congestion. THROAT: Mucous membranes moist, posterior pharynx clear. NECK: Neck supple, non-tender without lymphadenopathy, masses or thyromegaly. CARDIOVASCULAR: Regular rate and rhythm without murmurs, gallops, or rubs. RESPIRATORY: Clear to auscultation. Breath sounds equal bilaterally. No wheezes, rales, or rhonchi. SKIN: warm, Dry, intact with no suspicious lesions or rash, good texture and turgor. NEURO: awake, alert, and oriented to person, place and time. There were no obvious focal neurologic abnormalities. EXTREMITIES: No joint tenderness, effusion, or edema noted. Course Course Level of Care: Express Care Visit Vital Signs Vital signs: Vital Signs Temperature 37.0 C 05/08/23 18:50 Pulse Rate 96 05/08/23 18:50 Respiratory Rate 18 05/08/23 18:50 Blood Pressure 147/100 H
[2023-05-09 19:44] LABS: SARS-CoV-2 RNA PCR Positive (Negative)
== END 2023-05-08 19:30 | disposition home or self-care (01) ==
PROVIDERS: Emergency Provider Nurse Practitioner Family; PCP Registered Nurse
DX: U07.1 COVID-19 (principal); I10 Essential (primary) hypertension; Z98.84 Bariatric surgery status
CPT/HCPCS: 87081; 87426; 87635; 87804; 87880; 99213; G0463

== ENCOUNTER 2023-08-06 13:37 | Observation (INO) | payer OTHER, SELFPAY ==
--- NOTE | ~2023-08-06 | CT_ITS ---
EXAMINATION: CT thoracic spine wo con DATE: 08/06/2023 17:02 INDICATION: Back pain post fall TECHNIQUE: Computed tomography (CT) of the thoracic spine was performed without intravenous contrast. Automated exposure control and iterative reconstruction technique were employed. The dose-length pro duct was 605.33 mGy-cm. COMPARISON: Two-view chest radiograph dated 04/27/2020 FINDINGS: Alignment is normal. There are relatively recent-appearing superior endplate compression fractures wi th lucent likely fracture lines along the superior endplates and mild underlying some endplate sclero sis. This includes T4, T5 and T6 and T8, each with <20% central vertebral body height loss. There is mild central ballooning of the disks adjacent to the compression fractures. Remaining disc heights ar e normal. No significant central canal or neural foraminal stenosis. There are tree-in-bud opacities in the left lower lobe and visualized dependent portion of the lingula which given the history of sei zure is concerning for aspiration. Small sliding-type hiatal hernia with suture line along the visual ized proximal most stomach suggesting possible sleeve gastrectomy. Cholecystectomy clips the gallblad siobhan fossa. IMPRESSION: 1. Relatively recent-appearing mild superior endplate compression fractures at T4, T5, T6 and T8. 2. Tree-in-bud opacities in the left lower lobe and lingula suspicious for aspiration. Reviewed, dictated and finalized at location A. IMPRESSION: 1. Relatively recent-appearing mild superior endplate compression fractures at T4, T5, T6 and T8. 2. Tree-in-bud opacities in the left lower lobe and lingula suspicious for aspi ration.
--- NOTE | ~2023-08-06 | CT_ITS ---
EXAMINATION: CT cervical spine wo con DATE: 08/06/2023 17:01 INDICATION: Fall post seizure TECHNIQUE: Computed tomography (CT) of the cervical spine was performed without intravenous contrast. Automated exposure control and iterative reconstruction technique were employed. The dose-length pro duct was 605.33 mGy-cm. COMPARISON: None FINDINGS: 5 degrees cervicothoracic levocurvature. Sagittal alignment is normal. Vertebral body and disc height s are normal. No fracture. No significant facet or uncovertebral osteoarthritis. No central canal or neural foraminal stenosis. Cervical soft tissues are unremarkable.. Periodontal and dental disease wi th several dental caries. Visualized apices of lungs are clear. IMPRESSION: 1. No acute osseous abnormality Reviewed, dictated and finalized at location A.
--- NOTE | ~2023-08-06 | CT_ITS ---
EXAMINATION: CT brain wo con DATE: 08/06/2023 17:01 INDICATION: Fall post seizure TECHNIQUE: Computed tomography (CT) of the head was performed without intravenous contrast. Sagittal and coronal reconstructions were performed. The mA was adjusted according to patient size. Iterative reconstruction technique was employed. The dose-length product was 605.33 mGy-cm. COMPARISON: None FINDINGS: No fracture. No acute intracranial hemorrhage, acute infarction or abnormal extra axial fluid collect ion. Ventricles are normal and symmetric. No mass/mass effect. Tiny right mastoid effusion. The orbit s and paranasal sinuses are normal. IMPRESSION: 1. Normal brain. No fracture or acute intracranial process. Reviewed, dictated and finalized at location A.
[2023-08-06 13:37] VITALS: BP 150/109; PULSE 87; RESP 18; TEMP 36.1; O2SAT 100
[2023-08-06 15:15] VITALS: O2SAT 98
--- NOTE | 2023-08-06 15:55 | ED.SEIZURE ---
HPI - Seizure General Chief Complaint: Seizure Stated Complaint: seizure Time Seen by Provider: 08/06/23 15:19 History of Present Illness HPI Narrative: Patient is a 42-year-old female with history of iron deficiency anemia requiring recurrent transfusions here after seizure-like activity. She notes that she was sitting at work in a chair when she started feeling flushed and then woke up in an ambulance. Mom states that per bystanders they noted that she called out for help, fell to the ground out of her chair and had approximately 2 minutes of generalized tonic clonic movements. She was confused afterwards and now is back to her normal self. She is currently complaining of a headache and mid back pain after the fall. She also is experiencing some tongue pain and is worried she may have bit her tongue. Patient notes one similar episode about 3 months ago. She notes she was at [facility] waiting for blood transfusion and had some seizure like movements, she notes she has seen a neurologist through the [facility] system, is not on antiepileptics. She denies blood thinner use. No current chest pain or shortness of breath. Related Data Home Medications Medication Instructions Recorded Confirmed amlodipine 10 mg tablet 10 mg PO DAILY 05/24/22 07/19/23 omeprazole 20 mg capsule,delayed 20 mg PO DAILY 05/24/22 07/19/23 release ergocalciferol (vitamin D2) 1,250 1,250 mcg PO DAILY 10/18/22 07/19/23 mcg (50,000 unit) capsule Allergies Allergy/AdvReac Type Severity Reaction Status Date / Time No Known Allergies Allergy Verified 07/19/23 14:57 Review of Systems Review of Systems: All systems reviewed & are unremarkable except as noted in HPI and below PMFSH Past Medical History Medical History History of hypertension Hypertension Surgical History Surgical History H/O gastric sleeve Family History Family History Father Alcoholism Diabetes mellitus Grandparent Cancer Heart disease Other Cancer Mother Hypertension Social History Social History (Reviewed 10/18/22 @ 17:18 by ANN MARIE Roque Smoking status: Never smoker Alcohol intake: never Substance use: never Living arrangements: with family Additional occupation/education comments: [employer] Gender identity (if verbalized by the patient): Female Spiritual care concerns: Yes (Nondenominational) Exam Narrative: GENERAL: Well-appearing, well-nourished, and in no acute distress. HEAD: Normocephalic, atraumatic. EYES: PERRLA and EOMI. ENT: Nares clear. Mucous membranes moist. No obvious tongue biting or laceration. NECK: Supple. No midline cervical tenderness. CHEST: Clear to auscultation. No respiratory distress. No chest wall tenderness HEART: Regular rate and rhythm. Normal peripheral pulses. ABDOMEN: Soft, nontender, nondistended. EXTREMITIES: Normal range of motion. No edema. Bilateral upper and lower extremities atraumatic. She does have midline midthoracic tenderness with no step-offs appreciated. No lumbar tenderness. SKIN: Warm, dry, no rash. NEURO: No focal deficits. Alert and oriented x3. PSYCH: Normal mood and affect. Course Course Emergency Course: Chart review performed. Patient here after reported seizure. Triage vitals show HTN, otherwise normal. Patient seen evaluated, nontoxic appearing, alert, oriented, does not appear to be postictal at this time. Concern for possible seizure-like activity. She did fall to the floor, will do CT head, cervical spine, thoracic spine. Basic lab workup and EKG have been ordered. Lab work and imaging reviewed. Hgb 11.7, will not require transfusion today. Electrolytes within normal limits. Troponin normal. CT brain negative, CT cervical spine negative. CT thoracic sp
--- NOTE | 2023-08-06 15:58 | ECG_ITS ---
SEE SCANNED COPY FOR CONFIRMED REPORT MTDD
[2023-08-06] MEDS: ONDANSETRON INJ 4 MG/2 ML VIAL IV PUSH (16:14)
[2023-08-06] MEDS: MORPHINE SULFATE (*CRX) 4 MG/ML INJ IV PUSH (16:14)
[2023-08-06 16:53] LABS: Basophils Percent Auto 0.3 % (0.2-1.2); Eosinophils Absolute Auto 0.1 K/mm3 (0-0.3); Eosinophils Percent Auto 1.2 % (0-4.4); Hematocrit 36.5 % (37.0-47.0); Hemoglobin 11.7 g/dL (12.0-15.0); Immature Granulocyte Absolute 0.03 K/mm3 (0.00-0.031); Immature Granulocyte Percent A 0.3 % (0-0.5); Immature Platelet Fraction Pct 2.5 % (0.9-11.2); Lymphocytes Absolute Auto 1.34 K/mm3 (0.9-3.2); Lymphocytes Percent Auto 13.7 % (18.3-44.2); Mean Corpuscular HGB Conc 32.1 g/dl (32-36); Mean Corpuscular Hemoglobin 23.1 pg (26-34); Mean Corpuscular Volume 72.1 fl (80-100); Mean Platelet Volume 9.5 fl (7.4-10.4); Monocytes Absolute Auto 0.4 K/mm3 (0.1-0.6); Monocytes Percent Auto 4.5 % (2.6-8.5); Neutrophils Absolute Auto 7.9 K/mm3 (1.3-6.7); Platelet Count Result 245 k/mm3 (150-375); Red Blood Count 5.06 M/mm3 (4.2-5.4); White Blood Count 9.8 K/mm3 (4.5-10.0)
[2023-08-06 17:06] LABS: Alanine Aminotransferase 9 U/L (6-35); Albumin Level 4.7 g/dL (3.5-5.1); Alkaline Phosphatase 76 U/L (38-126); Anion Gap 6 mmol/L (4-12); Aspartate Amino Transferase 24 U/L (14-36); Blood Urea Nitrogen 11 mg/dL (7-17); Calcium 9.5 mg/dL (8.4-10.2); Carbon Dioxide 26 mmol/L (22-30); Chloride 105 mmol/L (98-107); Estimated CRCL calculation 94 ml/min; Estimated Glomerular Filt Rate > 60; Glucose 84 mg/dL (65-110); Magnesium 2.1 mg/dL (1.6-2.3); Potassium 3.5 mmol/L (3.4-5.0); Sodium 137 mmol/L (137-145)
[2023-08-06 17:17] LABS: Anisocytosis 2+; Microcytosis 1+ (NORMAL); Ovalocytes 1+; Platelet Estimate Adequate (Adequate); Target Cells 1+; Troponin I < 0.012 ng/mL (0.000-0.034)
[2023-08-06 17:18] LABS: Schistocytes None Seen; Tear Drop Cells 1+
[2023-08-06] MEDS: diazePAM (*CRX) 5 MG TABLET 10 MG PO (17:25)
[2023-08-06 20:13] VITALS: BP 142/84; PULSE 65; RESP 18; O2SAT 100
[2023-08-06] MEDS: HYDROmorphone HCL INJ (*CRX) 1 MG/ML SYR IV PUSH (22:51)
[2023-08-06 23:00] VITALS: BP 167/98; PULSE 69; RESP 18; TEMP 36.5; O2SAT 100
[2023-08-06 23:53] VITALS: BP 146/92
[2023-08-07] VITALS (10 sets, daily range): BP systolic 121–136; BP diastolic 77–95; PULSE 52–81; RESP 16–18; TEMP 36.5–36.6; O2SAT 98–100
[2023-08-07] MEDS: HYDROmorphone HCL INJ (*CRX) 1 MG/ML SYR IV PUSH (08:42)
[2023-08-07] MEDS: ENOXAPARIN 40 MG/0.4 ML SYRINGE SUB-Q (09:50)
[2023-08-07] MEDS: levETIRAcetam 500 MG TABLET PO ×2 (09:50→21:11)
[2023-08-07] MEDS: amLODIPine BESYLATE 5 MG TABLET 10 MG PO (09:50)
[2023-08-07] MEDS: PANTOPRAZOLE 40 MG TABLET PO (09:50)
--- NOTE | 2023-08-07 10:31 | PM.IMHP ---
H&P: HPI History of Present Illness Date/Time: 08/07/23 10:31 Chief Complaint: Seizure Narrative: This is 42-year-old female with a significant past medical history of iron deficiency anemia, sickle cells trait, hypertension presented to the hospital after seizure-like activity. Most of information obtained from the chart as patient had altered mental status at that time. Patient was reported per bystanders to have approximately a 2 minute generalized tonic clonic seizure at work and sustained a fall to the ground out of her chair. Patient was somewhat confused afterwards however she is now back to her normal self. Patient did state in the ED that she had an episode about 3 months ago when she was at [facility] waiting for blood transfusion and she had some seizure-like activity at that time. She was seeing a neurologist at [facility] but was not on any antiepileptics. She states that they thought that this might of been due more to her anemia. She did say that her mother has history of seizures and is on Lamictal. Patient denies any fever, chills, nausea, abdominal pain, chest pain, shortness a breath. Patient endorses fatigue and back pain. Workup in the hospital included head CT which was negative for any acute intracranial process, no fracture seen. Cervical spine CT was negative. Thoracic spine CT showed recent appearing mild superior endplate compression fractures at T4, T5, T6, and T8, tree in bed opacities in the left lower lobe and lingula suspicious for aspiration. Initial labs revealed hemoglobin of 11.7, troponin 0.012, otherwise unremarkable. EKG showed normal sinus rhythm with a rate of 65, QTC 419. Patient was given a dose of morphine, Valium, and Zofran while in the ED. neurosurgery and Neurology were both consulted. Patient was started on Keppra for recent seizure activity and dilaudid ordered for pain control. Review of Systems Review of Systems: All systems reviewed & are unremarkable except as noted in HPI and below Constitutional: Constitutional: Reports as per HPI and Reports no additional constitutional complaints Eyes: Eyes: Reports as per HPI and Reports no additional eye complaints ENT: Reports system reviewed and no additional complaints, except as documented and Reports as per HPI Cardiovascular: Cardiovascular: Reports as per HPI and Reports no additional cardiovascular complaints Respiratory: Respiratory: Reports as per HPI and Reports no additional respiratory complaints Gastrointestinal: Gastrointestinal: Reports as per HPI and Reports no additional gastrointestinal complaints Genitourinary: Genitourinary: Reports no additional female genitourinary complaints and Reports as per HPI Musculoskeletal: Musculoskeletal: Reports no additional musculoskeletal complaints and Reports as per HPI Integumentary/Breasts: Skin/Breast: Reports system reviewed and no additional complaints, except as docu and Reports as per HPI Neurologic: Reports system reviewed and no additional complaints, except as documented and Reports as per HPI Psychiatric: Psychiatric: Reports no additional psychiatric complaints and Reports as per HPI [facility] Past Medical History Medical History Hypertension Seizure Sickle cell trait Surgical History Surgical History H/O gastric sleeve Family History Family History Father Alcoholism Diabetes mellitus Grandparent Cancer Heart disease Other Cancer Mother Hypertension Seizures Social History Social History Smoking status: Never smoker Second hand tobacco smoke exposure: No Alcohol intake: current Drinks per week: 4 Substance use: current Substance use type: marijuana Do You Feel Safe in your Home?: Yes Lack of Transpo
[2023-08-07] MEDS: ONDANSETRON INJ 4 MG/2 ML VIAL IV PUSH (10:33)
--- NOTE | 2023-08-07 11:11 | WPDNEURCNPN ---
Assessment and Plan Assessment and plan (1) Seizure-like activity: Code(s): R56.9 - Unspecified convulsions Status: Acute Plan 1. Neurological examination at this stage is nonfocal, and initial CT scan of the head was negative but will obtain the MRI of the brain to rule out the possibility of subtle lesions because the history of recurrent episodes of seizure. Additionally she will need an EEG and in the meantime she will continue on Keppra 500mg q.12 hours with seizure precautions while in the hospital and also with instruction not to drive until she is seizure-free the next 6 months. Consult date: 08/07/23 HPI: Diane Anglin is a 42 year old female Admitted to the hospital through the emergency room for the complaint of seizure-like activity. Reportedly she was sitting at work in a chair when she started feeling flushed and then woke up in an ambulance. Bystanders noted she called out for help fell to the ground out of her chair and had [id number] of generalized tonic-clonic movements. She was noted to be confused afterwards and subsequently complaining of headaches and mid lower back pain additionally she complained of 10 pain patient has had the similar episode about 3 months ago when she was waiting at [facility] for the blood transfusion and she has seen the neurologist through [facility] though at present she is not on any antiepileptic. Her medications included amlodipine 10mg daily, omeprazole 20mg daily, and vitamin D supplements, she is not allergic to any medications, she is never a smoker, never alcohol intake and her initial examination in the emergency room was nonfocal . Her initial blood pressure was 150/109, CBC was normal with hemoglobin 11.7 BMP was normal and master scan was also normal. Initial CT scan of the head was negative for the bleed, for fracture, cervical spine CT scan was negative as well thoracic spine CT scan documented endplate compression fracture at T4-T5 T6 and T8 and x-ray chest with questionable left lower lobe lingular aspiration pneumonia, patient was started on Keppra in the emergency room Review of Systems Review of Systems: All systems reviewed & are unremarkable except as noted in HPI and below PMFSH Past Medical History Medical History Hypertension Seizure Surgical History Surgical History H/O gastric sleeve Family History Family History Father Alcoholism Diabetes mellitus Grandparent Cancer Heart disease Other Cancer Mother Hypertension Social History Social History Smoking status: Never smoker Second hand tobacco smoke exposure: No Alcohol intake: current Drinks per week: 4 Substance use: current Substance use type: marijuana Do You Feel Safe in your Home?: Yes Lack of Transportation: No Lack of Food: Never True Current Housing: I Have Housing Concerned About Future Housing: No Difficulty Paying Gas/Electric Bills: No Difficulty Paying for Meds: No Currently Unemployed: No Education: Associate Degree Difficulty w/ Childcare or Family Care: No Living arrangements: with family Additional occupation/education comments: [employer] Gender identity (if verbalized by the patient): Female Spiritual care concerns: Yes (Oriental Orthodox) Meds Home Medications and Allergies Home Medications Medication Instructions Recorded Confirmed Type amlodipine 10 mg tablet 10 mg PO DAILY 05/24/22 08/06/23 History omeprazole 20 mg capsule,delayed 20 mg PO DAILY 05/24/22 08/06/23 History release Allergies Allergy/AdvReac Type Severity Reaction Status Date / Time No Known Allergies Allergy Verified 07/19/23 14:57 Vital Signs Vital Signs - 24 hr 08/06/23 13:37
[2023-08-07] MEDS: FERROUS SULFATE 325 MG TABLET DR PO (11:39)
[2023-08-07] MEDS: AMOXICILLIN/CLAVULANATE K 875-125 MG TAB 1 TABLET PO ×2 (12:04→21:10)
[2023-08-07] MEDS: hydrALAZINE 10 MG TABLET PO ×3 (12:04→21:10)
[2023-08-07] MEDS: HYDROcodone/acetaminophen (*CRX) 5-325 MG TABLET 1 TAB PO (12:58)
--- NOTE | 2023-08-07 17:20 | WPDNEUROSGCN ---
Assessment and Plan Assessment and plan (1) Compression fx, thoracic spine: Qualifiers: Encounter type: initial encounter Thoracic vertebra fracture level: unspecified thoracic vertebra Qualified Code(s): S22.000A - Wedge compression fracture of unspecified thoracic vertebra, initial encounter for closed fracture Code(s): S22.000A - Wedge compression fracture of unspecified thoracic vertebra, initial encounter for closed fracture Status: Acute Plan Ms. Anglin is a 42-year-old female who presents with upper back pain after having a witnessed seizure yesterday. She is neurologically intact. Ct thoracic shows multiple compression deformities from T4 through T8 without significant height loss, kyphosis, or retropulsion. She has already been fitted for a brace. I recommend TLSO as tolerated for comfort. She should avoid NSAIDs as these can interfere with bone healing. I will arrange for follow up with me in clinic. Consult date: 08/07/23 HPI: Diane Anglin is a 42 year old female with history of anemia and sickle cell trait who presented to the hospital yesterday after having a seizure at work. She has had one other previous seizure and was not started on medication at the time as this was felt to be a fluke. Yesterday, she had what sounds like a grand mal seizure at work. Her coworkers reportedly slid her out of a chair to the floor. Imaging in the ER showed multiple thoracic compression fractures. She is having mid upper back pain which is focal and does not radiate. She denies paresthesias, pain, or weakness in the legs. Review of Systems Review of Systems: All systems reviewed & are unremarkable except as noted in HPI and below PMFSH Past Medical History Medical History Hypertension Seizure Sickle cell trait Surgical History Surgical History H/O gastric sleeve Family History Family History Father Alcoholism Diabetes mellitus Grandparent Cancer Heart disease Other Cancer Mother Hypertension Seizures Social History Social History Smoking status: Never smoker Second hand tobacco smoke exposure: No Alcohol intake: current Drinks per week: 4 Substance use: current Substance use type: marijuana Do You Feel Safe in your Home?: Yes Lack of Transportation: No Lack of Food: Never True Current Housing: I Have Housing Concerned About Future Housing: No Difficulty Paying Gas/Electric Bills: No Difficulty Paying for Meds: No Currently Unemployed: No Education: Associate Degree Difficulty w/ Childcare or Family Care: No Living arrangements: with family Additional occupation/education comments: [employer] Gender identity (if verbalized by the patient): Female Spiritual care concerns: Yes (Sabianist) Meds Home Medications and Allergies Home Medications Medication Instructions Recorded Confirmed Type amlodipine 10 mg tablet 10 mg PO DAILY 05/24/22 08/06/23 History omeprazole 20 mg capsule,delayed 20 mg PO DAILY 05/24/22 08/06/23 History release Allergies Allergy/AdvReac Type Severity Reaction Status Date / Time No Known Allergies Allergy Verified 07/19/23 14:57 Vital Signs Vital Signs - 24 hr 08/06/23 20:13 08/06/23 23:00 08/06/23 23:53 Temperature 97.7 F Pulse Rate 65 69 Respiratory Rate 18 18 Blood Pressure 142/84 H 167/98 H 146/92 H Pulse Oximetry 100 100 Oxygen Delivery 08/07/23 00:00 08/07/23 00:00 08/07/23 04:00 Temperature Pulse Rate 60 61 Respiratory Rate Blood Pressure Pulse Oximetry 100 Oxygen Delivery Room Air 08/07/23 05:59 08/07/23 08:41 08/07/23 08:00 Temperature 97.7 F Pulse Rate 65 Respiratory Rate 18 Blood Pressure 136/95 H Pulse O
[2023-08-07] MEDS: HYDROcodone/acetaminophen (*CRX) 5-325 MG TABLET PO ×2 (17:36→21:11)
[2023-08-08] VITALS: PULSE 52
[2023-08-08 04:00] VITALS: PULSE 52
[2023-08-08 05:42] VITALS: BP 149/84; PULSE 52; RESP 18; TEMP 36.8; O2SAT 100
[2023-08-08 06:51] LABS: Basophils Percent Auto 0.8 % (0.2-1.2); Eosinophils Absolute Auto 0.2 K/mm3 (0-0.3); Eosinophils Percent Auto 3.9 % (0-4.4); Hematocrit 34.3 % (37.0-47.0); Hemoglobin 10.8 g/dL (12.0-15.0); Immature Granulocyte Absolute 0.01 K/mm3 (0.00-0.031); Immature Granulocyte Percent A 0.2 % (0-0.5); Lymphocytes Absolute Auto 1.63 K/mm3 (0.9-3.2); Lymphocytes Percent Auto 32.1 % (18.3-44.2); Mean Corpuscular HGB Conc 31.5 g/dl (32-36); Mean Corpuscular Hemoglobin 22.9 pg (26-34); Mean Corpuscular Volume 72.8 fl (80-100); Monocytes Absolute Auto 0.4 K/mm3 (0.1-0.6); Monocytes Percent Auto 8.1 % (2.6-8.5); Neutrophils Absolute Auto 2.8 K/mm3 (1.3-6.7); Neutrophils Percent Auto 54.9 % (45.5-73.1); Platelet Count Result 223 k/mm3 (150-375); Red Blood Count 4.71 M/mm3 (4.2-5.4); White Blood Count 5.1 K/mm3 (4.5-10.0)
[2023-08-08 07:04] LABS: Alanine Aminotransferase 8 U/L (6-35); Alkaline Phosphatase 60 U/L (38-126); Anion Gap 4 mmol/L (4-12); Aspartate Amino Transferase 20 U/L (14-36); Bilirubin,Total 0.9 mg/dL (0.2-1.3); Blood Urea Nitrogen 13 mg/dL (7-17); Calcium 9.1 mg/dL (8.4-10.2); Carbon Dioxide 27 mmol/L (22-30); Chloride 105 mmol/L (98-107); Estimated CRCL calculation 94 ml/min; Estimated Glomerular Filt Rate > 60; Glucose 86 mg/dL (65-110); Potassium 3.4 mmol/L (3.4-5.0); Sodium 136 mmol/L (137-145)
[2023-08-08 08:00] VITALS: PULSE 58
[2023-08-08 08:19] LABS: Anisocytosis 1+; Hypochromasia 1+; Platelet Estimate Adequate (Adequate); Schistocytes None Seen
[2023-08-08] MEDS: hydrALAZINE 10 MG TABLET PO (10:05)
[2023-08-08] MEDS: PANTOPRAZOLE 40 MG TABLET PO (10:05)
[2023-08-08] MEDS: levETIRAcetam 500 MG TABLET PO (10:05)
[2023-08-08] MEDS: FERROUS SULFATE 325 MG TABLET DR PO (10:05)
[2023-08-08] MEDS: AMOXICILLIN/CLAVULANATE K 875-125 MG TAB 1 TABLET PO (10:05)
[2023-08-08] MEDS: amLODIPine BESYLATE 5 MG TABLET 10 MG PO (10:05)
[2023-08-08] MEDS: HYDROmorphone HCL INJ (*CRX) 1 MG/ML SYR IV PUSH (10:09)
[2023-08-08] MEDS: LIDOCAINE 5% PATCH 1 PATCH TRANSDERM (10:09)
[2023-08-08] MEDS: ENOXAPARIN 40 MG/0.4 ML SYRINGE SUB-Q (10:09)
[2023-08-08 12:00] VITALS: PULSE 84
--- NOTE | 2023-08-08 13:07 | P.PNIM_ITS ---
Progress Note: A&P Assessment and Plan (1) Seizure-like activity: Code(s): R56.9 - Unspecified convulsions Status: Acute Assessment and Plan: 08/07/23: * Patient had a reported tonic clonic like seizure that lasted about 2 minutes yesterday. Patient reports seizure-like activity about 3 months ago whenever she was at [facility] for blood transfusion for her anemia. She was seeing a neurologist at [facility] however she was not put on any antiepileptic medication at that time. * Head CT was negative for any acute intracranial process or fracture. * Obtain records from [facility] * Neurology consulted * Patient started on Keppra * Plan for EEG 08/08/23: * neurology following * continue Keppra * plan for EGD today (2) Compression fx, thoracic spine: Qualifiers: Encounter type: initial encounter Thoracic vertebra fracture level: unspecified thoracic vertebra Qualified Code(s): S22.000A - Wedge compression fracture of unspecified thoracic vertebra, initial encounter for closed fracture Code(s): S22.000A - Wedge compression fracture of unspecified thoracic vertebra, initial encounter for closed fracture Status: Acute Assessment and Plan: 08/07/23: * Cervical spine CT was negative for any acute abnormality * Thoracic spine CT revealed relatively recent appearing mild superior endplate compression fractures at T4, T5, T6, and T8 * Dilaudid and [place] for pain control ordered * Will add a lidocaine patch * Neurosurgery consulted * TLSO brace ordered * PT and OT ordered 08/08/23: * continue with pain control * neurosurgery following * PT and OT ordered * continue with TLSO brace (3) Aspiration pneumonia: Code(s): J69.0 - Pneumonitis due to inhalation of food and vomit Status: Acute Assessment and Plan: 08/07/23: * Thoracic CT revealed tree in bud opacities in the left lower lobe and lingula suspicious for aspiration * White blood cell count 9.8 today * Patient started on Augmentin for aspiration pneumonia 08/08/23: * continue with Augmentin (4) Anemia: Code(s): D64.9 - Anemia, unspecified Status: Acute Assessment and Plan: 08/07/23: * Hemoglobin 11.7 * Patient has history of iron deficiency anemia and has had blood transfusions in the past, with the most recent being 3 months ago at [facility]. * Patient is not on any iron supplementation at home * Ferrous sulfate 325 mg ordered daily 08/08/23: * hemoglobin 10.8 * continue with current treatment plan (5) Hypertension: Code(s): I10 - Essential (primary) hypertension Status: Acute Assessment and Plan: 08/07/23: * Blood pressures ranging 136/95-167/98 * Continue amlodipine 10 mg daily * Will start hydralazine 10 mg q.i.d. for better blood pressure control 08/08/23: * blood pressures ranging 128/77 to 149/84 * continue with current treatment plan Time Spent With Patient Time with patient: 25 - 35 minutes Subjective Date/time seen: 08/08/23 13:07 Interval history: 08/07/23: This is 42-year-old female with a significant past medical history of iron deficiency anemia, sickle cells trait, hypertension presented to the hospital after seizure-like activity.? Most of information obtained from the chart as patient had altered mental status at that time.? Patient was reported per bystanders to have approximately a 2 minute generalized tonic clonic seizure at work and sustained a fall to the ground out of her chair.? P
--- NOTE | 2023-08-08 13:07 | PM.IMPN ---
Progress Note: A&P Assessment and Plan (1) Seizure-like activity: Code(s): R56.9 - Unspecified convulsions Status: Acute Assessment and Plan: 08/07/23: Patient had a reported tonic clonic like seizure that lasted about 2 minutes yesterday. Patient reports seizure-like activity about 3 months ago whenever she was at [facility] for blood transfusion for her anemia. She was seeing a neurologist at [facility] however she was not put on any antiepileptic medication at that time. Head CT was negative for any acute intracranial process or fracture. Obtain records from [facility] Neurology consulted Patient started on Keppra Plan for EEG 08/08/23: neurology following continue Keppra plan for EGD today (2) Compression fx, thoracic spine: Qualifiers: Encounter type: initial encounter Thoracic vertebra fracture level: unspecified thoracic vertebra Qualified Code(s): S22.000A - Wedge compression fracture of unspecified thoracic vertebra, initial encounter for closed fracture Code(s): S22.000A - Wedge compression fracture of unspecified thoracic vertebra, initial encounter for closed fracture Status: Acute Assessment and Plan: 08/07/23: Cervical spine CT was negative for any acute abnormality Thoracic spine CT revealed relatively recent appearing mild superior endplate compression fractures at T4, T5, T6, and T8 Dilaudid and [place] for pain control ordered Will add a lidocaine patch Neurosurgery consulted TLSO brace ordered PT and OT ordered 08/08/23: continue with pain control neurosurgery following PT and OT ordered continue with TLSO brace (3) Aspiration pneumonia: Code(s): J69.0 - Pneumonitis due to inhalation of food and vomit Status: Acute Assessment and Plan: 08/07/23: Thoracic CT revealed tree in bud opacities in the left lower lobe and lingula suspicious for aspiration White blood cell count 9.8 today Patient started on Augmentin for aspiration pneumonia 08/08/23: continue with Augmentin (4) Anemia: Code(s): D64.9 - Anemia, unspecified Status: Acute Assessment and Plan: 08/07/23: Hemoglobin 11.7 Patient has history of iron deficiency anemia and has had blood transfusions in the past, with the most recent being 3 months ago at [facility]. Patient is not on any iron supplementation at home Ferrous sulfate 325 mg ordered daily 08/08/23: hemoglobin 10.8 continue with current treatment plan (5) Hypertension: Code(s): I10 - Essential (primary) hypertension Status: Acute Assessment and Plan: 08/07/23: Blood pressures ranging 136/95-167/98 Continue amlodipine 10 mg daily Will start hydralazine 10 mg q.i.d. for better blood pressure control 08/08/23: blood pressures ranging 128/77 to 149/84 continue with current treatment plan Time Spent With Patient Time with patient: 25 - 35 minutes Subjective Date/time seen: 08/08/23 13:07 Interval history: 08/07/23: This is 42-year-old female with a significant past medical history of iron deficiency anemia, sickle cells trait, hypertension presented to the hospital after seizure-like activity.? Most of information obtained from the chart as patient had altered mental status at that time.? Patient was reported per bystanders to have approximately a 2 minute generalized tonic clonic seizure at work and sustained a fall to the ground out of her chair.? Patient was somewhat confused afterwards however she is now back to her normal self.? Patient did state in the ED that she had an episode about 3 months ago when she was at [facility] waiting for blood transfusion and she had some seizure-like activity at that time.? She was seeing a neurologist at [facility]? but was not on any antiepileptics.? She states that they thought that this might of been due more to her anemia.? She did say that her
[2023-08-08 13:29] VITALS: BP 131/79; PULSE 79; RESP 17; TEMP 36.3; O2SAT 99
--- NOTE | 2023-08-08 16:12 | PM.DS ---
DS: Admitting Diagnosis Discharge Date 08/08/23 Admitting Diagnosis Seizure-like activity Compression fracture thoracic spine Aspiration pneumonia Anemia Hypertension DS: Discharge Diagnosis Discharge Diagnosis (1) Seizure-like activity: Code(s): R56.9 - Unspecified convulsions Status: Acute (2) Compression fx, thoracic spine: Qualifiers: Encounter type: initial encounter Thoracic vertebra fracture level: unspecified thoracic vertebra Qualified Code(s): S22.000A - Wedge compression fracture of unspecified thoracic vertebra, initial encounter for closed fracture Code(s): S22.000A - Wedge compression fracture of unspecified thoracic vertebra, initial encounter for closed fracture Status: Acute (3) Aspiration pneumonia: Code(s): J69.0 - Pneumonitis due to inhalation of food and vomit Status: Acute (4) Anemia: Code(s): D64.9 - Anemia, unspecified Status: Acute (5) Hypertension: Code(s): I10 - Essential (primary) hypertension Status: Acute DS: Summary Hospital Course Reason for hospitalization: Seizure-like activity Compression fracture thoracic spine Aspiration pneumonia Anemia Hypertension Hospital Course: 08/07/23: This is 42-year-old female with a significant past medical history of iron deficiency anemia, sickle cells trait, hypertension presented to the hospital after seizure-like activity.? Most of information obtained from the chart as patient had altered mental status at that time.? Patient was reported per bystanders to have approximately a 2 minute generalized tonic clonic seizure at work and sustained a fall to the ground out of her chair.? Patient was somewhat confused afterwards however she is now back to her normal self.? Patient did state in the ED that she had an episode about 3 months ago when she was at [facility] waiting for blood transfusion and she had some seizure-like activity at that time.? She was seeing a neurologist at [facility]? but was not on any antiepileptics.? She states that they thought that this might of been due more to her anemia.? She did say that her mother has history of seizures and is on Lamictal.? Patient denies any fever, chills, nausea, abdominal pain, chest pain, shortness a breath. Patient endorses fatigue and back pain.? Workup in the hospital included head CT which was negative for any acute intracranial process, no fracture seen.? Cervical spine CT was negative.? Thoracic spine CT showed recent appearing mild superior endplate compression fractures at T4, T5, T6, and T8, tree in bed opacities in the left lower lobe and lingula suspicious for aspiration.? Initial labs revealed hemoglobin of 11.7, troponin 0.012, otherwise unremarkable.? EKG showed normal sinus rhythm with a rate of 65, QTC 419.? Patient was given a dose of morphine, Valium, and Zofran while in the ED. neurosurgery and Neurology were both consulted.? Patient was started on Keppra for recent seizure activity and dilaudid ordered for pain control. 08/08/23: ?? Patient reports her that her pain is well controlled on pain regimen. Labs today show a hemoglobin of 10.8, sodium 136, otherwise unremarkable.? Patient worked with therapy today and learned how to use her TLSO brace. She feels comfortable with putting it on and taking it off. Neurology plans to see patient on an outpatient basis and and said she can have her EEG done on an outpatient basis instead of getting here to have it done. Patient is stable for discharge at this time. She will need to follow up with Neurology in 2 weeks. She will also need to follow up with Neurosurgery in 2 weeks. She will be discharged with Augmentin for her aspiration pneumonia she will need to finish this antibiotic. She is also being discharged on Keppra for seizure control. She was found to be hypertensive requiring more than just her normal medication. I have started her on hydralazine and she will continue this
== END 2023-08-08 16:30 | disposition home or self-care (01) ==
LOC: ANHED 19:38 → ANH3MEDSUR 08-08 15:50
PROVIDERS: Nurse Practitioner Acute Care; Admitting Provider Internal Medicine; Emergency Provider Student in an Organized Health Care Education/Training Program; PCP Registered Nurse; Visit Provider Internal Medicine
DX: R56.9 Unspecified convulsions (principal); J69.0 Pneumonitis due to inhalation of food and vomit; S22.040A Wedge compression fracture of fourth thoracic vertebra, initial encounter for closed fracture; S22.050A Wedge compression fracture of T5-T6 vertebra, initial encounter for closed fracture; S22.060A Wedge compression fracture of T7-T8 vertebra, initial encounter for closed fracture; W18.39XA Other fall on same level, initial encounter; D50.9 Iron deficiency anemia, unspecified; I10 Essential (primary) hypertension; Z98.84 Bariatric surgery status; D57.3 Sickle-cell trait; F12.90 Cannabis use, unspecified, uncomplicated
CPT/HCPCS: 36415; 70450; 72125; 72128; 80053; 81025; 83735; 84484; 85025; 85055; 86850; 86900; 86901; 93005; 96372; 96374; 96375; 99285; A9270; G0378; J0696; J1170; J1650; J1836; J2270; J2405

== ENCOUNTER 2023-08-20 14:04 | Outpatient (CLI) | payer OTHER, SELFPAY ==
[2023-08-20 14:18] LABS: Hematocrit 32.4 % (37.0-47.0); Hemoglobin 10.4 g/dL (12.0-15.0); Mean Corpuscular HGB Conc 32.1 g/dl (32-36); Mean Corpuscular Hemoglobin 23.6 pg (26-34); Mean Corpuscular Volume 73.6 fl (80-100); Mean Platelet Volume 8.7 fl (7.4-10.4); Platelet Count Result 223 k/mm3 (150-375); White Blood Count 5.7 K/mm3 (4.5-10.0)
[2023-08-20 16:34] LABS: Iron 41 ug/dL (37-170)
[2023-08-20 16:45] LABS: Percent Iron Saturation 11 % (20-50)
== END 2023-08-20 14:05 | disposition home or self-care (01) ==
LOC: ANHLAB 14:05
PROVIDERS: PCP Registered Nurse; Visit Provider Internal Medicine Hematology & Oncology
DX: D64.9 Anemia, unspecified (principal)
CPT/HCPCS: 36415; 82607; 82728; 82746; 83540; 83550; 85027

== ENCOUNTER 2023-10-14 13:06 | Outpatient (CLI) | payer OTHER, SELFPAY ==
--- NOTE | ~2023-10-14 | XR_ITS ---
3 VIEWS THORACIC SPINE Ordering provider: Dorita Ruggiero MD History: . S22.000A - Wedge compression fracture of unspecified thor... . Comparison: None. FINDINGS: VERTEBRAL BODIES: Loss of volume of T4, T5 and T6 is noted. This may be acute or chronic. Otherwise, Normal height and alignment. No visible fracture or subluxation. DISK SPACES: Normal. SOFT TISSUES: Normal. IMPRESSION: Loss of volume of T4, T5 and T6 with possibility of acute or chronic compression fractures. Further e valuation advised. Reviewed, dictated and finalized at location A. IMPRESSION: Loss of volume of T4, T5 and T6 with possibility of acute or chronic compressio n fractures. Further evaluation advised.
== END 2023-10-14 13:07 | disposition home or self-care (01) ==
PROVIDERS: PCP Registered Nurse; Visit Provider Neurological Surgery
DX: M51.84 Other intervertebral disc disorders, thoracic region (principal)
CPT/HCPCS: 72072

== ENCOUNTER 2023-10-20 13:09 | Emergency (ER) | payer OTHER, SELFPAY ==
--- NOTE | ~2023-10-20 | XR_ITS ---
EXAMINATION: XR shoulder RT min 2V DATE: 10/20/2023 14:03 INDICATION: Right shoulder pain post fall during seizure TECHNIQUE: AP internally and externally rotated, AP oblique externally rotated and transscapular Y vi ews of the right shoulder were obtained. COMPARISON: None FINDINGS: Normal alignment. No fracture. Glenohumeral joint is normal. Acromioclavicular joint is normal. Soft tissues are unremarkable. IMPRESSION: Negative right shoulder radiographs. Reviewed, dictated and finalized at location A.
[2023-10-20 13:12] VITALS: BP 159/112; PULSE 89; RESP 20; TEMP 36.4; O2SAT 100
[2023-10-20 13:15] VITALS: O2SAT 100
[2023-10-20] MEDS: KETOROLAC 30 MG/ML VIAL (*BKC) IV PUSH (13:43)
[2023-10-20 14:08] VITALS: BP 174/110; PULSE 66; RESP 15; O2SAT 100
--- NOTE | 2023-10-20 14:14 | ED.SEIZURE ---
HPI - Seizure General Chief Complaint: Seizure Stated Complaint: Seizure Time Seen by Provider: 10/20/23 13:28 History of Present Illness HPI Narrative: Patient is a 42-year-old female who presents ER after having a seizure. Reports that she had just placed her Keppra in her mouth and swallowed it when she developed her seizure. It lasted approximately 5 minutes according to family. Patient reports she did not take any of her antiepileptic medicine yesterday but did take a dose of it the day before. She reports she usually takes 1 dose a day despite being prescribed 2 doses a day. She just started having seizures in last couple months. This is her 3rd seizure. Denies drug use. Patient does report right shoulder pain that has developed since having her seizure today. Related Data Home Medications Medication Instructions Recorded Confirmed amlodipine 10 mg tablet 10 mg PO DAILY 05/24/22 08/06/23 omeprazole 20 mg capsule,delayed 20 mg PO DAILY 05/24/22 08/06/23 release Allergies Allergy/AdvReac Type Severity Reaction Status Date / Time No Known Allergies Allergy Verified 10/10/23 13:54 Review of Systems Review of Systems: All systems reviewed & are unremarkable except as noted in HPI and below Constitutional: Constitutional: Reports no additional constitutional complaints ENT: Reports system reviewed and no additional complaints, except as documented Cardiovascular: Cardiovascular: Reports no additional cardiovascular complaints Respiratory: Respiratory: Reports no additional respiratory complaints Musculoskeletal: Musculoskeletal: Denies back pain, Reports arthralgias and Denies joint swelling PMFSH Past Medical History Medical History Hypertension Seizure Sickle cell trait Surgical History Surgical History H/O gastric sleeve History of bilateral breast reduction surgery History of hysterectomy Family History Family History Father Alcoholism Diabetes mellitus Grandparent Cancer Heart disease Other Cancer Mother Hypertension Seizures Social History Social History Smoking status: Never smoker Second hand tobacco smoke exposure: No Alcohol intake: current Drinks per week: 4 Substance use: current Substance use type: marijuana Do You Feel Safe in your Home?: Yes Lack of Transportation: No Lack of Food: Never True Current Housing: I Have Housing Concerned About Future Housing: No Difficulty Paying Gas/Electric Bills: YES Difficulty Paying for Meds: No Currently Unemployed: No Education: Associate Degree Difficulty w/ Childcare or Family Care: No Living arrangements: with family Additional occupation/education comments: [employer] Gender identity (if verbalized by the patient): Female Spiritual care concerns: Yes (Denominational) Exam Narrative: GENERAL: Well-appearing, obese, and in no acute distress. HEAD: Normocephalic, atraumatic. ENT: Mucous membranes moist. CHEST: Clear to auscultation. No respiratory distress. HEART: Regular rate and rhythm. Normal peripheral pulses. ABDOMEN: Soft, nontender, nondistended. EXTREMITIES: Normal range of motion. No edema. TTP right shoulder, no deformity. SKIN: Warm, dry, no rash. NEURO: Alert and oriented x3. PSYCH: Normal mood and affect. Course Course Emergency Course: No evidence of traumatic injury to the right shoulder. Discharge home. Vital Signs Vital signs: Vital Signs Temperature 97.6 F 10/20/23 13:12 Pulse Rate 89 10/20/23 13:12 Respiratory Rate 20 10/20/23 13:12 Blood Pressure 159/112 H 10/20/23 13:12 Pulse Oximetry 100 10/20/23 13:12 Oxygen Delivery Room Air 10/20/23 13:12 Temperature 97.6 F 10/20/23 13:1
[2023-10-20 14:32] VITALS: BP 165/105; PULSE 60; RESP 12; O2SAT 99
[2023-10-20 15:02] VITALS: BP 171/115; PULSE 58; RESP 16; O2SAT 100
[2023-10-20 15:19] VITALS: BP 170/116; PULSE 67; RESP 13; O2SAT 100
== END 2023-10-20 15:36 | disposition home or self-care (01) ==
PROVIDERS: Emergency Provider Emergency Medicine; PCP Registered Nurse
DX: R56.9 Unspecified convulsions (principal); M25.511 Pain in right shoulder; I10 Essential (primary) hypertension
CPT/HCPCS: 73030; 96374; 99284; J1885

== ENCOUNTER 2024-01-16 11:35 | Emergency (ER) | payer OTHER, SELFPAY ==
[2024-01-16 11:50] VITALS: BP 145/91; PULSE 63; RESP 19; TEMP 37.1; O2SAT 99
--- NOTE | 2024-01-16 12:02 | ED.URI ---
HPI - URI/Sore Throat General Chief Complaint: Upper Respiratory Infection Stated Complaint: Bodyaches/Chills Time Seen by Provider: 01/16/24 12:02 Source: patient Mode of arrival: ambulatory Limitations: no limitations History of Present Illness HPI Narrative: 43-year-old female presents with complaint of fatigue, headache, postnasal drainage, congestion, sore throat for 2 days. Afebrile. Denies nausea vomiting diarrhea. Taking Coricidin cold and Sinus to treat symptoms. No chest pain or shortness of breath, denies cough. All systems reviewed and negative except as noted. Related Data Home Medications Medication Instructions Recorded Confirmed amlodipine 10 mg tablet 10 mg PO DAILY 05/24/22 01/16/24 omeprazole 20 mg capsule,delayed 20 mg PO DAILY 05/24/22 01/16/24 release Allergies Allergy/AdvReac Type Severity Reaction Status Date / Time No Known Allergies Allergy Verified 01/16/24 11:39 Review of Systems Review of Systems: CONSTITUTIONAL: Denies fever, chills, or sweats. Reports fatigue. EYES: Denies visual changes, redness, or discharge. ENT: Reportsrhinorrhea, congestion, sore throat. Denies otalgia. CARDIOVASCULAR: Denies chest pain, palpitations, or edema. RESPIRATORY: Denies cough or dyspnea. GASTROINTESTINAL: Denies abdominal pain, nausea, vomiting, or diarrhea. GENITOURINARY: Denies dysuria or hematuria. SKIN: Denies rash or itching. MUSCULOSKELETAL: Denies back pain, joint pain, or myalgia. NEUROLOGIC: Denies headache, numbness, or weakness. PSYCHIATRIC: Denies anxiety or depression. All other systems reviewed are negative, except as documented in HPI. [facility] Past Medical History Medical History Hypertension Seizure Sickle cell trait Surgical History Surgical History H/O gastric sleeve History of bilateral breast reduction surgery History of hysterectomy Family History Family History Father Alcoholism Diabetes mellitus Grandparent Cancer Heart disease Other Cancer Mother Hypertension Seizures Social History Social History Smoking status: Never smoker Second hand tobacco smoke exposure: No Alcohol intake: current Drinks per week: 4 Substance use: current Substance use type: marijuana Do You Feel Safe in your Home?: Yes Lack of Transportation: No Lack of Food: Never True Current Housing: I Have Housing Concerned About Future Housing: No Difficulty Paying Gas/Electric Bills: YES Difficulty Paying for Meds: No Currently Unemployed: No Education: Associate Degree Difficulty w/ Childcare or Family Care: No Living arrangements: with family Additional occupation/education comments: [employer] Gender identity (if verbalized by the patient): Female Spiritual care concerns: Yes (Congregation) Comments At time of signature, agree with nursing past medical, surgical, social and family history. There is no relevant family history pertinent to the presenting complaint. Exam Narrative: GENERAL: This is a well-nourished, well-developed patient, in no apparent distress. HEAD: normocephalic, atraumatic. EYES: PERRL. Sclera clear/white. Vision is grossly intact. EARS: External ears normal, auditory canals clear and without drainage, TMs normal without perforation. Hearing grossly intact. NOSE: External nose normal with Clear postnasal drainage, erythema to bilateral nares THROAT: Mucous membranes moist, clear postnasal drainage. No erythema, swelling or exudates. NECK: Neck supple, non-tender without lymphadenopathy, masses or thyromegaly. CARDIOVASCULAR: Regular rate and rhythm without murmurs, gallops, or rubs. RESPIRATORY: Clear to auscultation. Breath sounds equal bilaterally. No wheeze
[2024-01-16 12:07] LABS: EDCOVIDSCREEN Negative (Negative); EDINFLUASCREEN Negative (Negative); EDINFLUBSCREEN Negative (Negative)
== END 2024-01-16 12:25 | disposition home or self-care (01) ==
PROVIDERS: Emergency Provider Nurse Practitioner Family; PCP Registered Nurse
DX: J01.90 Acute sinusitis, unspecified (principal); Z20.822 Contact with and (suspected) exposure to COVID-19; I10 Essential (primary) hypertension; D57.3 Sickle-cell trait; Z98.84 Bariatric surgery status
CPT/HCPCS: 87426; 87804; 99213; G0463

== ENCOUNTER 2025-01-19 11:13 | Emergency (ER) | payer OTHER, SELFPAY ==
--- NOTE | ~2025-01-19 | XR_ITS ---
XR foot LT min 3V 01/19/2025 11:41 INDICATION: Left foot pain after injury PROCEDURE: 4 views left foot COMPARISON: No prior studies for comparison. FINDINGS: Fracture, dislocation or subluxation is not identified. There are degenerative calcaneal enthesophytes. Lisfranc joint intact. The soft tissues appear within normal limits. No foreign bodies are identified. IMPRESSION: 1: NO ACUTE BONE OR JOINT ABNORMALITY IDENTIFIED. Reviewed, dictated and finalized at location O.
--- NOTE | 2025-01-19 11:17 | ED_ITS ---
HPI - Extremity Injury (Lower) General Chief Complaint: Extremity Injury, Lower Stated Complaint: Left Ankle Pain Time Seen by Provider: 01/19/25 11:25 Source: patient, RN notes reviewed and old records reviewed Mode of arrival: ambulatory Limitations: no limitations History of Present Illness HPI Narrative: 44 year old female who presents to [facility] with complaints of left foot pain to the medial aspect of her left foot with some radiation of discomfort into the heel and arch of her left foot. Patient reports no injury to her foot or ankle. Patient reports that it started out as a cramping sensation but now it is just a sharp pain at times with movement and ambulation, minimal at rest. Patient has not taken any OTC medication for her symptoms. MD complaint: other (left foot pain no injury) Onset (ago): day(s) (since yesterday) Severity scale (1-10): 7 Treatments prior to arrival: other (none) Related Data Home Medications ?Medication ?Instructions ?Recorded ?Confirmed ?Last Taken ?Type amlodipine 10 mg tablet 10 mg PO DAILY 05/24/2212/3008/06/23 08:00 History omeprazole 20 mg capsule,delayed 20 mg PO DAILY 01/16/24 08/06/23 08:00 History release hydrochlorothiazide 25 mg tablet mg 01/19/25 Unknown History topiramate 50 mg tablet mg 01/19/25 Unknown History Allergies Allergy/AdvReac Type Severity Reaction Status Date / Time No Known Allergies Allergy Verified 01/19/25 11:28 Review of Systems Review of Systems: CONSTITUTIONAL: Denies fever, chills, or sweats. EYES: Denies visual changes, redness, or discharge. ENT: Denies rhinorrhea, congestion, sore throat, or otalgia. CARDIOVASCULAR: Denies chest pain, palpitations, or edema. RESPIRATORY: Denies cough or dyspnea. GASTROINTESTINAL: Denies abdominal pain, nausea, vomiting, or diarrhea. GENITOURINARY: Denies dysuria or hematuria. SKIN: Denies rash or itching. MUSCULOSKELETAL: Denies back pain, left medial foot pain, or myalgia. NEUROLOGIC: Denies headache, numbness, or weakness. PSYCHIATRIC: Denies anxiety or depression. All systems reviewed & are unremarkable except as noted in HPI and below PMFSH Past Medical History Medical History Migraine Sickle cell trait Seizure Hypertension Surgical History Surgical History History of hysterectomy History of bilateral breast reduction surgery H/O gastric sleeve Family History Family History Father Alcoholism Diabetes mellitus Grandparent Cancer Heart disease Other Cancer Mother Hypertension Seizures Social History Social History Smoking status: Never smoker Second hand tobacco smoke exposure: No Alcohol intake: current Drinks per week: 4 Substance use: current Substance use type: marijuana Do You Feel Safe in your Home?: Yes Lack of Transportation: No Lack of Food: Never True Current Housing: I Have Housing Concerned About Future Housing: No Difficulty Paying Gas/Electric Bills: YES Difficulty Paying for Meds: No Currently Unemployed: No Education: Associate Degree Difficulty w/ Childcare or Family Care: No Living arrangements: with family Additional occupation/education comments: [employer] Gender identity (if verbalized by the patient): Female Spiritual care concerns: Yes (Zoroastrianism) Comments At time of signature, agree with nursing past medical, surgical, social and family history. There is no relevant family history pertinent to the presenting complaint Exam Narrative: GENERAL: Well-appearing, well-nourished, and in no acute distress. HEAD: Normocephalic, atraumatic. EYES: PERRLA and EOMI. ENT: Nares clear, no rhinorrhea or epistaxis. Mucous membranes moist.TM's normal throat without swelling or pain NECK: Supple. no lymphadenopathy CHEST: Clear to auscultation. No respiratory distress.SAO2 99% on room air HEART: Regular rate and rhythm. No murmur heard. Normal peripheral pulses. ABDOMEN: Soft, nontender, nondistended, normal active bowel sounds. EXTREMITIES: Normal range of motion. No edema noted. Pain to medial aspect of her left foot radiating back to her heel and to arch area of left foot. Patient denies an injury, reports pain worse with ambulation, at rest minimal discomfort, strong pedal pulse left foot sensation and mobility intact to left foot and ankle. SKIN: Warm, dry, no rash. NEURO: No focal deficits. Alert and oriented x3. Course Course Emergency Course: Patient is aware of diagnosis, understands and agrees to treatment plan.? Anticipatory guidance given.? Patient agrees to follow-up as directed and is aware of reasons to seek care at the emergency department. Portions of this record may have been created with voice recognition software Level of Care: Express Care Visit Vital Signs Vital signs: Reviewed MDM - Extremity Injury (Lower) Differential Diagnosis Differential diagnosis: Likely ankle sprain and strain, ankle fracture and other (foot fracture, plantar fasciitis, heel spur) Medical Records Attestation: I reviewed the patient's medical records. Imaging Data My impression: degenerative calcaneal enthesophytes ,no fracture or any dislocation or subluxation Radiologist's impression: [facility] [address] [place] [address] XRay Report Signed Patient: Diane Anglin : 1980 MR#: [id number] Age: 44 Acct:[id number] Loc: [facility] ADM Date: 01/19/[address]: Ordering Physician: Odalys Hatch APRN Date of Service: 01/19/25 Procedure(s): XR foot LT min 3V Accession Number(s): [id number] cc: Odalys Hatch APRN; Colleen, Landy COLEMAN~ XR foot LT min 3V 01/19/2025 11:41 INDICATION: Left foot pain after injury PROCEDURE: 4 views left foot COMPARISON: No prior studies for comparison. FINDINGS: Fracture, dislocation or subluxation is not identified. There are degenerative calcaneal enthesophytes. Lisfranc joint intact. The soft tissues appear within normal limits. No foreign bodies are identified. IMPRESSION: 1: NO ACUTE BONE OR JOINT ABNORMALITY IDENTIFIED. Reviewed, dictated and finalized at location O. Please be advised this is a medical document. It is intended for [id number] communication. It is written in medical language and may contain unfamiliar abbreviations or verbiage. Medical documents are intended to carry relevant information, facts as evident, and the clinical opinion of the practitioner at the time of the encounter. This report may have been done utilizing a voice recognition system. Attempts have been made to correct errors. However, there may be uncorrected grammatical, spelling, and recognition errors present. The file time of this note does not necessarily represent the time of service. Dictated By: Asael Thomas MD 01/19/25 1144 Signed By: <Electronically signed by Asael Thomas MD in OV> Critical Care Time Critical Care Time Critical Care Time: No Discharge Plan Discharge Clinical Impression: Foot pain, left Heel spur Qualifiers: Laterality: left Qualified Code(s): M77.32 - Calcaneal spur, left foot Patient Disposition: Home Condition: Stable Instructions: Antibiotic Form, Arthralgia (ED), Heel Spur (ED) Additional Instructions: Tylenol for pain recommend Tylenol arthritis 650mg one tab every 8 hours routinely Prednisone 40 mg daily with food for 5 days for the inflammation Follow-up with orthopedic surgeon or podiatry if continued pain and concerns Follow-up with PCP if further problems or concerns Ice to the area 20-30 minutes 4-6 times a day Elevate above heart Wear good supportive shoes daily If your symptoms persist, change or worsen significantly before you can contact your personal physician then please, without delay, go to the emergency department for further evaluation. Follow-up with PCP in 7-10 days or sooner if needed Follow up with PCP soon in regards to your blood pressure which is elevated above threshold for referral. Blood pressure above 120/80 may indicate pre- hypertension.145/89 Patient Language: Greenlandic Prescriptions: New prednisone 20 mg tablet 20 mg PO DAILY 5 Days Qty: 5 0RF No Action amlodipine 10 mg tablet 10 mg PO DAILY omeprazole 20 mg capsule,delayed release(DR/EC) 20 mg PO DAILY fluticasone propionate [Flonase Allergy Relief] 50 mcg/actuation spray,suspension 1 spray intranasal BID Qty: 16 0RF Rx Instructions: administer into each nostril hydrochlorothiazide 25 mg tablet topiramate 50 mg tablet levetiracetam [Keppra] 500 mg Tablet 500 mg PO Q12HR Qty: 60 0RF cyclobenzaprine 10 mg tablet 10 mg PO TID PRN (Reason: muscle spasm) Qty: 20 0RF naproxen 375 mg tablet 375 mg PO BID Qty: 14 0RF Follow-up/Referrals: Colleen,SHAWN Bill [Primary Care Provider] Time of Disposition: 12:03 Quality Sadie Coma Scale Eyes: Open Verbal: Oriented and Alert Motor: Follows Commands [place] Coma Total Score: 15
[2025-01-19 11:27] VITALS: BP 145/89; PULSE 70; RESP 18; TEMP 36.6; O2SAT 99
== END 2025-01-19 12:08 | disposition home or self-care (01) ==
PROVIDERS: Emergency Provider Registered Nurse; PCP Registered Nurse
DX: M77.32 Calcaneal spur, left foot (principal); I10 Essential (primary) hypertension; Z79.899 Other long term (current) drug therapy
CPT/HCPCS: 73630; 99213; G0463